=== PATIENT | male | born 1965 | race African-American/Black ===

== ENCOUNTER 2024-06-19 09:30 | Day surgery (SDC) | payer BC ==
[2024-06-17 13:59] LABS: Basophils # (auto) 0 10 ^3/uL (0-0.2); Basophils % (auto) 0.7 % (0.0-2.0); Eosinophils # (auto) 0.1 10 ^3/uL (0-0.8); Eosinophils % (auto) 2.8 % (0.0-7.0); Hematocrit 44.9 % (41.0-53.0); Hemoglobin 14.9 g/dL (13.5-17.5); Lymphocytes % (auto) 40.1 % (10.0-50.0); Mean Corpuscular Hemoglobin 26.6 pg (28.0-32.0); Mean Corpuscular Hgb Conc. 33.3 g/dL (32.0-36.0); Mean Corpuscular Volume 79.8 fL (80.0-100.0); Monocytes # (auto) 0.5 10 ^3/uL (0-1.3); Monocytes % (auto) 10.8 % (0.0-12.0); Neutrophils # (auto) 2.3 10 ^3/uL (1.6-8.6); Neutrophils % (auto) 45.6 % (37.0-80.0); Nucleated Red Blood Cells % 0.1 %; Platelet Count (auto) 185 10^3/uL (140-450); Red Blood Cells 5.63 10^6/uL (4.5-5.90); Red Cell Distribution Width 14.6 % (11.8-14.3)
[2024-06-17 14:15] LABS: INR 1.03 (0.9-1.15); Partial Thromboplastin Time 28.2 SEC (24.5-34.5); Prothrombin Time 10.9 sec (9.3-11.8)
[2024-06-17 14:23] LABS: Alanine Aminotransferase 17 U/L (7-40); Alkaline Phosphatase 82 U/L (46-116); Anion Gap 4 (5-15); Aspartate Aminotransferase 12 U/L (13-40); BUN/Creatinine Ratio 13.1 (10.0-20.0); Blood Urea Nitrogen 16 mg/dL (9-23); Calcium 9.8 mg/dL (8.7-10.4); Carbon Dioxide 28 mmol/L (20-31); Chloride 109 mmol/L (98-107); Glucose 95 mg/dL (74-106); Potassium 4.5 mmol/L (3.5-5.1); Sodium 141 mmol/L (136-145)
[2024-06-17 14:24] LABS: Albumin 4.5 g/dL (3.2-4.8); Bilirubin, Total 0.4 mg/dL (0.2-1.0); Total Protein 7.3 g/dL (5.7-8.2)
[~2024-06-19] VITALS: Ht 180.3 cm; Wt 90.7 kg
[~2024-06-19 09:30] MED LIST: AMLO1TAB22 PO
[2024-06-19] MEDS ORDERED: SODIUM CHLORIDE LOCK 10 ML ONE (10:00)
[2024-06-19 11:15] VITALS: PULSE 43; RESP 11; O2SAT 100
[2024-06-19] MEDS: diphenhdrAMINE HCL 50 MG/1 ML VL ONE (11:30)
[2024-06-19] MEDS: MIDAZOLAM HCL 5 MG/ML-1ML VIAL ONE (11:30)
[2024-06-19] MEDS: fentaNYL CITRATE 100 MCG/2 ML VL ONE (11:30)
[2024-06-19 12:00] VITALS: TEMP 97.6
--- NOTE | 2024-06-19 12:03 | DVHOP2 ---
Operative Report DATE OF OPERATION: 06/19/24 PROCEDURE: Colonoscopy with hot snare polypectomy. PREOPERATIVE INDICATION: The patient is a 58 -year-old male undergoing colonoscopy for surveillance with personal history of colon polyps POSTOPERATIVE DIAGNOSES: 1. There was a 1 cm benign-appearing ascending colon polyp that was seen and removed by snare polypectomy and the specimens were retrieved 2. There was a to 3 mm benign-appearing sigmoid polyp that was seen and removed by snare polypectomy and the specimen was retrieved with a cold biopsy forceps 3. Rarwdert-es-eohloi scattered diverticular disease 4. Patient had one to 2+ internal hemorrhoids with grade 1 prolapse of the hemorrhoids and there was a slightly prominent inflamed fold from which biopsies were obtained PROCEDURE PERFORMED BY: Lex Landrum M.D. SCOPE: Olympus videocolonoscope. ASA CLASS: PREOPERATIVE MEDICATIONS: Versed 3 mg, Fentanyl 100 mcg, Benadryl 50 mg PROCEDURE IN DETAIL: After obtaining an informed consent, the patient was placed on left lateral decubitus position. He was then sedated with the above medications. A rectal examination was performed that was normal. The colonoscope was then passed through the anus into the rectosigmoid and through the descending, transverse, and ascending colon up to the cecum with visualization of the appendiceal orifice, base of the cecum and the ileocecal valve. The colonoscope was then withdrawn. In the ascending colon there was a 1-1.5 cm benign-appearing polyp. This was removed by snare polypectomy and the specimens were retrieved. There was a 3 mm benign-appearing sigmoid polyp that was seen and removed by snare polypectomy and the specimen was cauterized and removed by cold biopsy forceps Patient had npejxnwy-er-ufckjo scattered diverticular disease most prominent in the sigmoid. On retroflexion and straight on view the patient had one to 2+ internal hemorrhoids with grade 1 prolapse of the hemorrhoids which was reducible. On retroflexion there was a prominent anorectal fold involving the hemorrhoid complex and biopsies were obtained The patient tolerated the procedure well without difficulty. WITHDRAWAL TIME: 12 minutes QUALITY OF THE PREP: [place] Bowel Prep score: 9. COMPLICATIONS : None SPECIMENS: Ascending colon polyp Sigmoid polyp Anorectal biopsies DISPOSITION: Stable D/C to home PLAN: 1. Repeat colonoscopy base on biopsy result likely in 3-5 years 2. Resume GI soft diet advance as tolerated 3. Increase fluid and fiber intake 4. Local anorectal hemorrhoidal care and consider hemorrhoidectomy 5. Outpatient follow up with me in 4-6 weeks to review results and discuss further management LEX LANDRUM MD Jun 19, 2024 12:03
[2024-06-19 12:42] VITALS: BP 124/85; PULSE 47; RESP 12; O2SAT 97
== END 2024-06-19 13:00 | disposition home or self-care (01) ==
LOC: GI 09:30
PROVIDERS: ATTEND Internal Medicine Gastroenterology
DX: Z12.11 Encounter for screening for malignant neoplasm of colon (principal); K57.30 Diverticulosis of large intestine without perforation or abscess without bleeding; K64.1 Second degree hemorrhoids; D12.2 Benign neoplasm of ascending colon; K62.89 Other specified diseases of anus and rectum; I10 Essential (primary) hypertension; Z79.899 Other long term (current) drug therapy; Z98.890 Other specified postprocedural states; Z86.0100 Personal history of colon polyps, unspecified
CPT/HCPCS: 36415; 45380; 45385; 80053; 85025; 85610; 85730; 88305; 88342; J1200; J2250; J3010; J7030; 99152; 99153

== ENCOUNTER → 2025-03-08 | Day surgery (SDC) | payer BC ==
[2025-03-04 10:14] LABS: Hematocrit 47.0 % (41.0-53.0); Hemoglobin 15.8 g/dL (13.5-17.5); Mean Corpuscular Hemoglobin 26.9 pg (28.0-32.0); Mean Corpuscular Volume 79.6 fL (80.0-100.0); Nucleated Red Blood Cells % 0.3 %
[2025-03-04 10:29] LABS: INR 1.01 (0.9-1.15); Partial Thromboplastin Time 28.8 SEC (24.5-34.5); Prothrombin Time 10.7 sec (9.3-11.8)
[2025-03-04 10:39] LABS: Urine Protein, UAD Negative (Negative)
[2025-03-04 10:45] LABS: Alanine Aminotransferase 21 U/L (7-40); Alkaline Phosphatase 67 U/L (46-116); Anion Gap 8 (5-15); BUN/Creatinine Ratio 15.4 (10.0-20.0); Bilirubin, Total 0.5 mg/dL (0.2-1.0); Blood Urea Nitrogen 18 mg/dL (9-23); Calcium 10.1 mg/dL (8.7-10.4); Carbon Dioxide 27 mmol/L (20-31); Chloride 106 mmol/L (98-107); Glucose 95 mg/dL (74-106); Potassium 4.5 mmol/L (3.5-5.1); Sodium 141 mmol/L (136-145); Total Protein 7.4 g/dL (5.7-8.2)
[2025-03-04 10:52] LABS: Albumin 4.8 g/dL (3.2-4.8)
[~2025-03-08] VITALS: Ht 180.3 cm; Wt 94.8 kg
[~2025-03-08] MED LIST changes: +ACE3T PO; +BUPIVACAINE 0.5% MPF INJ 30ML SDV IJ ONE; +GELATIN 1 SPONGE SIZE 100 TOP ONE; +GLYCOPYRROLATE 0.2 MG/ML 1ML VIAL ONE; +HYDROmorphone HCL 2 MG/ML VL/or syr IV PRN; +HYDROmorphone HCL 2 MG/ML VL/or syr ONE; +KETAMINE 50mg/ML 1ml syringe ONE; +KETOROLAC TROMETH 30 MG/ML 1ML VIAL ONE; +LIDOCAINE 1% HCL (LOCAL ANESTH.) INJ 20ML MDV ONE; +LIDOCAINE 2% (LOCAL ANESTH.) PF 5ml SDV ONE; +LIDOCAINE 2% JELLY 11ml (GLYDO) ONE; +MIDAZOLAM HCL 2MG/2ML 2ml VIAL (1mg/ml) ONE; +ONDANSETRON HCL 4 MG/2 ML VIAL IV ONE; +ONDANSETRON HCL 4 MG/2 ML VIAL ONE; +PHENYLEPHRINE HCL 10 MG/ML VL ONE; +PROPOFOL 10 MG/ML 20 ML IV ONE; +SUGAMMADEX 200mg/2ml Vial (100MG/ML) IV ONE; +ceFAZolin 1GM/50ML 50 ML IV ONE; +fentaNYL CITRATE 100 MCG/2 ML VL ONE
[2025-03-08] MEDS: BUPIVACAINE W/ EPINEPH 0.5% INJ 50ML MDV IJ ONE (08:02)
--- NOTE | 2025-03-08 08:38 | DVHOP ---
DATE OF SURGERY: 03/08/2025 PREOPERATIVE DIAGNOSIS: Hemorrhoids. POSTOPERATIVE DIAGNOSIS: Hemorrhoids. SURGEON: Rah Singleton MD ASBESTOS MICROSCOPIST: Angelito Alcantar NP ANESTHESIA: General endotracheal. ANESTHESIOLOGIST: Dr. Salazar. DESCRIPTION OF PROCEDURE: Under general endotracheal anesthesia with the patient in kath knife position prone on the operating room table, the patient's body padded and secured and carefully protected. The patient's buttocks by tape. The perianal area was prepped and draped and infiltrated with 0.25% Marcaine with epinephrine. Subsequently, the anus was dilated to 3 fingerbreadths and the hemorrhoids were exposed. Individual groups of hemorrhoids that were partially external were grasped with a Ramirez and a Bovie clamp was applied to the base. The hemorrhoid was amputated. The remaining mucosa was sutured with 2-0 chromic sutures. Several internal hemorrhoids were controlled by means of application of rubber bands. The patient's anus was then packed with Gelfoam pad saturated with 2% Xylocaine gel. The patient remained stable throughout the procedure and left the operating room following an accurate needle and sponge count. His customer contact representative was thoroughly informed at [phone]. MD NATHEN Mccloud/AUREA TID: [id number] RECEIPT: [id number]
[2025-03-08 08:45] VITALS: PULSE 71; RESP 14; TEMP 97; O2SAT 98
[2025-03-08 09:00] VITALS: PULSE 82; RESP 12; O2SAT 100
[2025-03-08 09:15] VITALS: PULSE 58; RESP 12; O2SAT 95
[2025-03-08 09:45] VITALS: BP 149/83; PULSE 65; RESP 12; O2SAT 98
== END | disposition home or self-care (01) ==
LOC: SUR 06:06
PROVIDERS: ATTEND Surgery
DX: K64.4 Residual hemorrhoidal skin tags (principal); K64.8 Other hemorrhoids; I10 Essential (primary) hypertension; Z79.899 Other long term (current) drug therapy; Z98.890 Other specified postprocedural states
CPT/HCPCS: 36415; 46250; 80053; 81001; 85025; 85610; 85730; 88305; J0690; J1100; J1171; J1885; J2003; J2250; J2371; J2405; J2704; J3010; J3490

== ENCOUNTER 2025-05-30 11:57 | Inpatient (IN) | payer BC ==
[~2025-05-30] VITALS: Ht 180.3 cm; Wt 100.0 kg
[~2025-05-30 11:57] MED LIST changes: -BUPIVACAINE 0.5% MPF INJ 30ML SDV IJ ONE; -GELATIN 1 SPONGE SIZE 100 TOP ONE; -GLYCOPYRROLATE 0.2 MG/ML 1ML VIAL ONE; -HYDROmorphone HCL 2 MG/ML VL/or syr IV PRN; -HYDROmorphone HCL 2 MG/ML VL/or syr ONE; -KETAMINE 50mg/ML 1ml syringe ONE; -KETOROLAC TROMETH 30 MG/ML 1ML VIAL ONE; -LIDOCAINE 1% HCL (LOCAL ANESTH.) INJ 20ML MDV ONE; -LIDOCAINE 2% (LOCAL ANESTH.) PF 5ml SDV ONE; -LIDOCAINE 2% JELLY 11ml (GLYDO) ONE; -MIDAZOLAM HCL 2MG/2ML 2ml VIAL (1mg/ml) ONE; -ONDANSETRON HCL 4 MG/2 ML VIAL IV ONE; -ONDANSETRON HCL 4 MG/2 ML VIAL ONE; -PHENYLEPHRINE HCL 10 MG/ML VL ONE; -PROPOFOL 10 MG/ML 20 ML IV ONE; -SUGAMMADEX 200mg/2ml Vial (100MG/ML) IV ONE; -ceFAZolin 1GM/50ML 50 ML IV ONE; -fentaNYL CITRATE 100 MCG/2 ML VL ONE
--- NOTE | 2025-05-30 12:09 | ECG ---
[facility] Test Date: 2025-05-30 Test Time: 12:02:59 Pat Name: STEPHANIE MORGAN Department: ED Room: Gender: M Layer Off: WILLIAMS : 1965 Requested By: INEZ SMITH Order Number: [id number] Reading MD: Elías Bacon Measurements Intervals [place] Rate: 48 P: -27 OR: 108 QRS: 30 QRSD: 81 T: 44 QT: 413 QTc: 369 Interpretive Statements Sinus bradycardia Short OR interval Electronically Signed On 05-30-2025 17:04:19 PDT by Elías Bacon Please click the below link to view image of tracing.
--- NOTE | 2025-05-30 12:45 | ED.PDOC ---
HPI Comments 59 y.o male with PMHx of HTN, presents to the ED for a chief complaint of substernal chest pain that started today s/p leaving the gym today. Patient reports was doing cardio on the treadmill today, went inside the steam room and when he left, felt a sharp sudden pain localized to the center of his chest. Patient states pain only presents with movement and subsides at rest. Patient mentions living a healthy life, eats well and exercises daily. He has had previous stress test and other cardiac workup done in the past. No nausea, vomiting,, SOB reported. Chief Complaint: Chest Pain Time Seen by MD: 12:08 Reviewed Notes: Nurses Notes, Medications, Allergies Allergies: Coded Allergies: NO KNOWN ALLERGIES (Unverified , 06/17/24) Home Meds Active Scripts Acetaminophen W/ Codeine (Tylenol W/Cod #3) 1 Tab Tb, 1 TAB PO Q4HP PRN for 10 Days, #50 TAB Prov:ARIE FRAIRE REDYE HAND 03/08/25 Reported Medications Amlodipine Besylate (Amlodipine Besylate) 5 Mg Tab, 10 MG PO DAILY for 30 Days, MG 06/17/24 Information Source: Patient Mode of Arrival: Ambulatory Severity: Moderate Timing: Hours Duration: Since onset Location: Substernal Radiation: No Radiation Quality: Sharp Onset: At Rest Cardiac Risk Factors: HTN PE Risk Factors: None History of: None Modifying Factors: Nothing Associated Signs and Symptoms: None Past Medical History PAST MEDICAL HISTORY: HTN Surgical History: Denies all surgeries Family History Family History: Reviewed,noncontributory to illness Social History Smoker: Non-Smoker Alcohol: Denies ETOH Use Drugs: Denies Drug Use Lives In: Home Constitutional: denies: chills, diaphoresis, fatigue, fever, malaise, sweats, weakness, others EENTM: denies: blurred vision, double vision, ear bleeding, ear discharge, ear drainage, ear pain, ear ringing, eye pain, eye redness, hearing loss, mouth pain, mouth swelling, nasal discharge, nose bleeding, nose congestion, nose pain, photophobia, tearing, throat pain, throat swelling, voice changes, others Respiratory: denies: cough, hemoptysis, orthopnea, SOB at rest, shortness of breath, SOB with excertion, stridor, wheezing, others Cardiovascular: reports: chest pain; denies: dizzy spells, diaphoresis, Dyspnea on exertion, edema, irregular heart beat, left arm pain, lightheadedness, palpitations, PND, syncope, others Gastrointestinal: denies: abdomen distended, abdominal pain, blood streaked bowels, constipated, diarrhea, dysphagia, difficulty swallowing, hematemesis, melena, nausea, poor appetite, poor fluid intake, rectal bleeding, rectal pain, vomiting, others Genitourinary: denies: burning, dysuria, flank pain, frequency, hematuria, incontinence, penile discharge, penile sore, pain, testicle pain, testicle swelling, urgency, others Neurological: denies: dizziness, fainting, headache, left sided numbness, left sided weakness, numbness, paresthesia, pre-existing deficit, right sided numbness, right sided weakness, seizure, speech problems, tingling, tremors, weakness, others Musculoskeletal: denies: back pain, gout, joint pain, joint swelling, muscle pain, muscle stiffness, neck pain, others Integumetry: denies: bruises, change in color, change in hair/nails, dryness, laceration, lesions, lumps, rash, wounds, others Allergic/Immunocompromised: denies: Difficulty Healing, Frequent Infections, Hives, Itching, others Hematologic/Lymphatic: denies: anemia, blood clots, easy bleeding, easy bruising, swollen glands, others Endocrine: denies: excessive hunger, excessive sweating, excessive thirst, excessive urination, flushing, intolerance to cold, intolerance to heat, unexplained weight gain, unexplained weight loss, others Psychiatric: denies: anxiety, bipolar disorder, depression, hopeless, panic disorder, schizophrenia, sleepless, suicidal, others All Other Systems: Reviewed and Negative Physical Exam General Appearance: Moderate Distress HEENT: Normal ENT Inspection, Pharynx Normal, TMs Normal Neck: Full Range of Motion, Non-Tender, Normal, Normal Inspection Respiratory: Chest Non-Tender, Lungs Clear, No Accessory Muscle Use, No Respira tory Distress, Normal Breath Sounds Cardiovascular: Bradycardia Breast Exam: Deferred Gastrointestinal: No Organomegaly, Non Tender, No Pulsatile Mass, Normal Bowel Sounds, Soft Genitalia: Deferred Pelvic: Deferred Rectal: Deferred Extremities: No calf tenderness, Normal capillary refill, Normal inspection, Normal range of motion, Non-tender, No pedal edema Musculoskeletal : Apperance: Normal Neurologic: Alert, 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 Was a procedure done?: No CP Differential Dx Differential Diagnosis: A-fib, A-Flutter, Angina, Anxiety / Panic Attack, Atrial Dysrhythmia, Electrolyte Disorder, N/A Differential Diagnosis: Angina, Chest Wall Pain, Cholelithiasis, Costochondritis, Pericarditis X-Ray, Labs, Meds, VS Vital Signs Date Time Temp Pulse Resp B/P (MAP) Pulse Ox O2 Delivery O2 Flow Rate FiO2 05/30/25 15:00 52 05/30/25 14:08 59 05/30/25 14:08 59 18 136/81 (99) 98 05/30/25 13:05 53 05/30/25 12:45 48 05/30/25 12:02 98.0 53 18 157/95 97 98.0 05/30/25 12:02 48 Lab Test 05/30/25 13:30 05/30/25 12:35 Range/Units Troponin I High Sensitivity 111 *H 107 *H </=54 ng/L White Blood Count 4.3 L 4.4-10.8 10^3/uL Red Blood Count 5.38 4.5-5.90 10^6/uL Hemoglobin 14.2 13.5-17.5 g/dL Hematocrit 42.5 41.0-53.0 % Mean Corpuscular Volume 78.9 L 80.0-100.0 fL Mean Corpuscular Hemoglobin 26.5 L 28.0-32.0 pg Mean Corpuscular Hemoglobin Concent 33.5 32.0-36.0 g/dL Red Cell Distribution Width 14.2 11.8-14.3 % Platelet Count 167 140-450 10^3/uL Mean Platelet Volume 9.3 6.9-10.8 fL Neutrophils (%) (Auto) 49.1 37.0-80.0 % Lymphocytes (%) (Auto) 37.9 10.0-50.0 % Monocytes (%) (Auto) 9.9 0.0-12.0 % Eosinophils (%) (Auto) 2.5 0.0-7.0 % Basophils (%) (Auto) 0.6 0.0-2.0 % Neutrophils # (Auto) 2.1 1.6-8.6 10 ^3/uL Lymphocytes # (Auto) 1.6 0.4-5.4 10 ^3/uL Monocytes # (Auto) 0.4 0-1.3 10 ^3/uL Eosinophils # (Auto) 0.1 0-0.8 10 ^3/uL Basophils # (Auto) 0 0-0.2 10 ^3/uL Nucleated Red Blood Cells 0.2 % Sodium Level 141 136-145 mmol/L Potassium Level 4.6 3.5-5.1 mmol/L Chloride Level 107 98-107 mmol/L Carbon Dioxide Level 28 20-31 mmol/L Anion Gap 6 5-15 Blood Urea Nitrogen 14 9-23 mg/dL Creatinine 1.19 0.700-1.30 mg/dL Glomerular Filtration Rate Calc 70 >90 mL/min BUN/Creatinine Ratio 11.8 10.0-20.0 Serum Glucose 90 74-106 mg/dL Calcium Level 9.0 8.7-10.4 mg/dL Patient alert. Complaining of chest pain. EKG does show bradycardia. Vitals stable. Answering questions. Cardiac marker elevated. Was given Lovenox. Explained to the patient he has risk factors for coronary artery disease pain Continue monitoring. Time of 1ST Reevaluation: 12:41 Reevaluation 1ST: Unchanged Patient Education/Counseling: Diagnosis, Treatment, Prognosis Family Education/Counseling: No Family Present SEPSIS Sepsis Screen Date sepsis recognized/suspect: May 30, 2025 Time Sepsis recognized/suspect: 120 Recent Procedure: No On Antibiotic Therapy: No Respiratory Rate >20: No Heart Rate >90: No Temp<36 C (96.8 F) or >38.3 C: No SBP <90 or MAP <65 mmHG: No New Acute Mental Status Change: No Is the patient on CPAP, BIPAP,: No Physician Orders Troponin-I Hs (05/30/25 15:08) Electrocardigram (05/30/25 13:08) Electrocardigram (05/30/25 15:08) Chest Portable (05/30/25 12:21) Vital Signs Date Time Temp Pulse Resp B/P (MAP) Pulse Ox O2 Delivery O2 Flow Rate FiO2 05/30/25 15:00 52 05/30/25 14:08 59 05/30/25 14:08 59 18 136/81 (99) 98 05/30/25 13:05 53 05/30/25 12:45 48 05/30/25 12:02 98.0 53 18 157/95 97 98.0 05/30/25 12:02 48 Laboratory Tests Test 05/30/25 12:35 White Blood Count 4.3 10^3/uL (4.4-10.8) L Departure 1 Departure Time of Disposition: 15:34 Impression: Primary Impression: Demand ischemia Additional Impressions: HTN (hypertension) Qualified Codes: I10 - Essential (primary) hypertension Bradycardia Disposition: ADMITTED INPATIENT Admit to: Med Surg Condition: Guarded Critical Care Note Critical Care Time?: Yes (55 min-critical care time only) Stability Stability form required: No Heart Score Heart Score: Heart Score Response (Comments) Value History Slightly Suspicious 0 EKG Normal 0 Age 45-64 1 Risk Factors 1 or 2 risk factors 1 Troponin >3 x's Normal limit 2 Total 4 I personally scribed for INEZ SMITH MD ([email or web address]) on 05/30/25 at 12:45. Electronically submitted by Valentina Rose ([facility]). INEZ SMITH MD May 30, 2025 12:45
[2025-05-30 12:46] LABS: Hemoglobin 14.2 g/dL (13.5-17.5)
[2025-05-30 12:48] LABS: Hematocrit 42.5 % (41.0-53.0); Mean Corpuscular Hemoglobin 26.5 pg (28.0-32.0); Mean Corpuscular Volume 78.9 fL (80.0-100.0); Nucleated Red Blood Cells % 0.2 %
[2025-05-30 12:56] LABS: Potassium 4.6 mmol/L (3.5-5.1); Sodium 141 mmol/L (136-145)
[2025-05-30 12:57] LABS: Anion Gap 6 (5-15); Calcium 9.0 mg/dL (8.7-10.4); Carbon Dioxide 28 mmol/L (20-31); Chloride 107 mmol/L (98-107)
[2025-05-30 13:02] LABS: BUN/Creatinine Ratio 11.8 (10.0-20.0); Blood Urea Nitrogen 14 mg/dL (9-23); Glucose 90 mg/dL (74-106)
--- NOTE | 2025-05-30 13:07 | DVH ---
XY CHEST PORTABLE, HISTORY: sob COMPARISON: XY CHEST TWO VIEWS ROUTINE on DOS: 03/04/25 XY CHEST TWO VIEWS ROUTINE on DOS: 03/04/25 TECHNICAL DATA: 1 view of the chest was obtained. FINDINGS: Lines and tubes: None Cardiomediastinal silhouette: normal Pulmonary vasculature: normal Lung expansion: normal Lung airspace: normal Lung interstitium: normal Pleura: normal Pneumothorax: no Bones: Unremarkable Other: no IMPRESSION: No acute intrathoracic abnormality.
--- NOTE | 2025-05-30 16:26 | ECG ---
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
[2025-05-30 16:51] VITALS: PULSE 57; RESP 20; O2SAT 97
[2025-05-30] MEDS ORDERED: MORPHINE SULFATE INJ 2 MG/ml SYRG IV PRN (19:30)
[2025-05-30] MEDS ORDERED: ONDANSETRON HCL 4 MG/2 ML VIAL IV PRN (19:30)
[2025-05-30] MEDS ORDERED: NITROGLYCERIN 0.4 MG SL TAB SL PRN (19:30)
[2025-05-30] MEDS ORDERED: TEMAZEPAM 15 MG CAP PO PRN (19:30)
[2025-05-30] MEDS: ATORVASTATIN 20 MG TAB PO SCH (22:53)
--- NOTE | 2025-05-30 22:58 | DVHHP2 ---
History of Present Illness Reason for Visit: Chest pain History of Present Illness 59-year-old male presents for evaluation of chest pain. Patient endorses a five day history of substernal chest tightness with mild shortness for breath. He states today the symptoms became worse while he was at the gym. No nausea or vomiting. No other acute complaints reported. Past Medical History Hypertension Past Surgical History Denies Family History Noncontributory Smoke: No ALCOHOL: none Drugs: None Lives: with Family Review of Systems Review of Systems Review of systems are currently negative otherwise addressed in HPI. Allergies: Coded Allergies: NO KNOWN ALLERGIES (Unverified , 06/17/24) Medications Current Medications Medications Dose Ordered Sig/Benito Route Start Time Stop Time Status Last Admin Dose Admin Atorvastatin Calcium 10 mg HS PO 05/30/25 22:00 05/30/25 22:53 10 MG Aspirin 81 mg DAILY PO 05/31/25 10:00 Amlodipine Besylate 10 mg DAILY PO 05/31/25 10:00 Temazepam 15 mg QHSP PRN PO 05/30/25 19:30 Ondansetron HCl 4 mg Q4HP PRN IV 05/30/25 19:30 Acetaminophen 650 mg Q6HP PRN PO 05/30/25 19:30 Nitroglycerin 0.4 mg Q5MINP PRN SL 05/30/25 19:30 Morphine Sulfate 2 mg Q30M PRN IV 05/30/25 19:30 Exam Vital Signs Vital Signs Date Time Temp Pulse Resp B/P (MAP) Pulse Ox O2 Delivery O2 Flow Rate FiO2 05/30/25 19:29 98.3 57 20 148/89 (108) 98 98.3 05/30/25 16:51 Room Air* 0 21 Exam Gen: 59-year-old male in mild distress. Skin: Warm, dry, normal color and texture, no rash. HEENT: Normocephalic atraumatic, mucous membranes moist and pink. Neck: Cervical and supraclavicular nodes normal without enlargement, trachea is midline, thyroid gland is normal without masses. Pulmonary: Clear to auscultation and percussion bilaterally. Cardiac: Regular rate and rhythm. No murmur Abdomen: Soft, nontender, nondistended, bowel sounds present all 4 quadrants, no guarding, no rigidity, no organomegaly. Extremities: No cyanosis, clubbing, no edema Neuro: Cranial nerves II through XII grossly intact, normal affect and speech, no focal motor deficits. Labs/Xrays ORDERING PHYSICIAN: INEZ SMITH MD PROCEDURE(s): CXRP - CHEST PORTABLE REASON: sob ORDER NUMBER(s): [id number], ACCESSION NUMBER(s): [id number] XY CHEST PORTABLE, HISTORY: sob COMPARISON: XY CHEST TWO VIEWS ROUTINE on DOS: 03/04/25 XY CHEST TWO VIEWS ROUTINE on DOS: 03/04/25 TECHNICAL DATA: 1 view of the chest was obtained. FINDINGS: Lines and tubes: None Cardiomediastinal silhouette: normal Pulmonary vasculature: normal Lung expansion: normal Lung airspace: normal Lung interstitium: normal Pleura: normal Pneumothorax: no Bones: Unremarkable Other: no IMPRESSION: No acute intrathoracic abnormality. ATED BY: UMANG VICK MD DICTATED DATE/TIME: 05/30/25 1305 SIGNED BY: UMANG VICK MD SIGNED DATE/TIME: 05/30/25 1305 CC: Labs Test 05/30/25 15:42 05/30/25 12:35 Range/Units Troponin I High Sensitivity 126 *H </=54 ng/L White Blood Count 4.3 L 4.4-10.8 10^3/uL Red Blood Count 5.38 4.5-5.90 10^6/uL Hemoglobin 14.2 13.5-17.5 g/dL Hematocrit 42.5 41.0-53.0 % Mean Corpuscular Volume 78.9 L 80.0-100.0 fL Mean Corpuscular Hemoglobin 26.5 L 28.0-32.0 pg Mean Corpuscular Hemoglobin Concent 33.5 32.0-36.0 g/dL Red Cell Distribution Width 14.2 11.8-14.3 % Platelet Count 167 140-450 10^3/uL Mean Platelet Volume 9.3 6.9-10.8 fL Neutrophils (%) (Auto) 49.1 37.0-80.0 % Lymphocytes (%) (Auto) 37.9 10.0-50.0 % Monocytes (%) (Auto) 9.9 0.0-12.0 % Eosinophils (%) (Auto) 2.5 0.0-7.0 % Basophils (%) (Auto) 0.6 0.0-2.0 % Neutrophils # (Auto) 2.1 1.6-8.6 10 ^3/uL Lymphocytes # (Auto) 1.6 0.4-5.4 10 ^3/uL Monocytes # (Auto) 0.4 0-1.3 10 ^3/uL Eosinophils # (Auto) 0.1 0-0.8 10 ^3/uL Basophils # (Auto) 0 0-0.2 10 ^3/uL Nucleated Red Blood Cells 0.2 % Sodium Level 141 136-145 mmol/L Potassium Level 4.6 3.5-5.1 mmol/L Chloride Level 107 98-107 mmol/L Carbon Dioxide Level 28 20-31 mmol/L Anion Gap 6 5-15 Blood Urea Nitrogen 14 9-23 mg/dL Creatinine 1.19 0.700-1.30 mg/dL Glomerular Filtration Rate Calc 70 >90 mL/min BUN/Creatinine Ratio 11.8 10.0-20.0 Serum Glucose 90 74-106 mg/dL Calcium Level 9.0 8.7-10.4 mg/dL B-Type Natriuretic Peptide 18.03 0-100 pg/mL SEPSIS Sepsis Screen Date sepsis recognized/suspect: May 30, 2025 Time Sepsis recognized/suspect: 1640 Recent Procedure: No On Antibiotic Therapy: No Respiratory Rate >20: No Heart Rate >90: No Temp<36 C (96.8 F) or >38.3 C: No SBP <90 or MAP <65 mmHG: No New Acute Mental Status Change: No Is the patient on CPAP, BIPAP,: No Physician Orders * Cardiology Consult (05/30/25 19:24) Basic Metabolic Panel (05/31/25 04:00) Atorvastatin (Lipitor) (05/30/25 22:00) Aspirin Tablet (05/31/25 10:00) Amlodipine Tablet (Norvasc Tablet) (05/31/25 10:00) Admit (05/30/25 19:24) Temazepam (Restoril) (05/30/25 19:30) Ondansetron Hcl (Zofran) (05/30/25 19:30) Cardiac Diet-2gna,Lofat,Lochol (05/31/25 Breakfast) Echo 2d Mode Cardiac Dop (05/30/25 19:24) Condition: Fair (05/30/25 19:24) Acetaminophen Tablet (Tylenol Tablet) (05/30/25 19:30) Bedrest With Bathroom Privileg (05/30/25:24) Nitroglycerin Sublingual (Ntrostat Subli (05/30/25 19:30) Morphine Sulfate Injection (05/30/25 19:30) Stat Ekg For Chest Pain (05/30/25:) Notify Md Of Changes From Base (05/30/25:24) Parts Expediter For 24 Hours (05/30/25:24) Emergency Dysrhythmia Protocol (05/30/25:) Rhythm Strips Once Every Shift (05/30/25:) Oxygen By Nasal Cannula (05/30/25) Thyroid Stimulating Hormone (05/30/25 22:55) Lipid Panel (05/30/25 22:55) Vital Signs Date Time Temp Pulse Resp B/P (MAP) Pulse Ox O2 Delivery O2 Flow Rate FiO2 05/30/25 19:29 98.3 57 20 148/89 (108) 98 98.3 05/30/25 18:57 98.3 57 20 148/89 (108) 98 98.3 05/30/25 16:51 57 20 97 Room Air* 0 21 05/30/25 16:51 98.2 67 20 142/79 (100) 97 98.2 05/30/25 16:41 98.2 57 20 142/79 (100) 96 98.2 05/30/25 15:00 52 Laboratory Tests Test 05/30/25 12:35 White Blood Count 4.3 10^3/uL (4.4-10.8) L Medications Medications Dose Ordered Sig/Benito Route Start Time Stop Time Status Last Admin Dose Admin Atorvastatin Calcium 10 mg HS PO 05/30/25 22:00 05/30/25 22:53 10 MG Assessment/Plan Assessment/Plan Assessment Chest pain rule out ACS Elevated troponin Hypertension Plan Admit the patient to telemetry to the hospitalist ACS protocol Resume home medications Continue treatment per orders. Plan discussed with: Patient My Orders Orders - TALA JACKMAN Procedure Category Date Status Time * Cardiology Consult CONS 05/30/25 Transmitted 19:24 Basic Metabolic Panel LAB 05/31/25 Verified 04:00 Atorvastatin (Lipitor) PHA 05/30/25 In Process 22:00 Aspirin Tablet PHA 05/31/25 In Process 10:00 Amlodipine Tablet PHA 05/31/25 In Process (Norvasc Tablet) 10:00 Admit ADMIT 05/30/25 Transmitted 19:24 Temazepam (Restoril) PHA 05/30/25 In Process 19:30 Ondansetron Hcl PHA 05/30/25 In Process (Zofran) 19:30 Cardiac DIET 05/31/25 Transmitted Diet-2gna,Lofat,Lochol Breakfast Echo 2d Mode Cardiac US 05/30/25 Logged DOP 19:24 Condition: Fair RAMONA 05/30/25 In Process 19:24 Acetaminophen Tablet PHA 05/30/25 In Process (Tylenol Tablet) 19:30 Bedrest With Bathroom RAMONA 05/30/25 In Process Privileg 19:24 Nitroglycerin PHA 05/30/25 In Process Sublingual (Ntrostat 19:30 Morphine Sulfate PHA 05/30/25 In Process Injection 19:30 Stat Ekg For Chest RAMONA 05/30/25 In Process Pain 19:24 Notify Md Of Changes RAMONA 05/30/25 In Process From Base 19:24 Parts Expediter For RAMONA 05/30/25 In Process 24 Hours 19:24 Emergency Dysrhythmia [facility] 05/30/25 In Process Protocol 19:24 Rhythm Strips Once [facility] 05/30/25 In Process Every Shift 19:24 Oxygen By Nasal RT 05/30/25 Transmitted Cannula 19:24 Thyroid Stimulating LAB 05/30/25 Verified Hormone 22:55 Lipid Panel LAB 05/30/25 Verified 22:55 Date of Service: May 30, 2025 Billing Provider: TALA JACKMAN Common Visit Codes: [id number] INP/OBS CARE (HIGH) TALA JACKMAN May 30, 2025 22:58
[2025-05-30 23:18] LABS: Cholesterol 201 mg/dL (< 200); HDL Cholesterol 29 mg/dL (40-59); Triglycerides 508 mg/dL (< 150)
[2025-05-31] VITALS (9 sets, daily range): BP systolic 105–160; BP diastolic 79–90; PULSE 43–56; RESP 10–18; TEMP 97.5–98.2; O2SAT 95–100
[2025-05-31 05:54] LABS: Chloride 106 mmol/L (98-107); Potassium 4.3 mmol/L (3.5-5.1); Sodium 141 mmol/L (136-145)
[2025-05-31 05:56] LABS: Anion Gap 8 (5-15); Calcium 9.0 mg/dL (8.7-10.4); Carbon Dioxide 27 mmol/L (20-31)
[2025-05-31 06:01] LABS: BUN/Creatinine Ratio 15.3 (10.0-20.0); Blood Urea Nitrogen 19 mg/dL (9-23)
[2025-05-31 06:02] LABS: Glucose 132 mg/dL (74-106)
[2025-05-31 10:18] LABS: Cannabinoid Screen, Urine Pos (NEGATIVE)
[2025-05-31 10:25] LABS: Amphetamine Screen, Urine Neg (NEGATIVE); Barbiturate Scree,Urine Neg (NEGATIVE); Benzodiazephine Screen, Urine Neg (NEGATIVE); Cocaine Screen, Urine Neg (NEGATIVE); Opiate Scree,Urine Neg (NEGATIVE); Phencyclidine Screen, Urine Neg (NEGATIVE)
--- NOTE | 2025-05-31 11:45 | DVHCONRES ---
Date Seen: May 31, 2025 Resident Creating Document: GRIS SY RESIDENT Referring Physician GASPER KAUFMAN History of Present Illness 59-year-old male presented to the ER with a chief complaint of chest pain for the past couple of days. Patient reports midsternal chest pain, tightness in nature, nonradiating, constant, 8/10 in intensity, exacerbates with exertion, but unrelated to food. 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 Has been having this pain during cardiac workout in gym. He thinks the the pain is because of the massage chair. Denies shortness of breaths, palpitations, nausea, diaphoresis, any abdominal or urinary symptoms at this time. He does have history of dyslipidemia but stopped taking medications. Past medical history: Dyslipidemia Home medication: Denies Social history: Denies smoking/drinking/drug use Family history: Mother and father in 60s due to stroke and PR. brother had PR at the age of 55 Patient seen and examined in ER Holding. He reports feeling fine, patient seen ambulating without chest pain. EKG shows sinus rhythm, troponins slightly up trending. Family History: FH: cardiovascular disease Allergies: Coded Allergies: NO KNOWN ALLERGIES (Unverified , 06/17/24) Home Meds Active Scripts Acetaminophen W/ Codeine (Tylenol W/Cod #3) 1 Tab Tb, 1 TAB PO Q4HP PRN for 10 Days, #50 TAB Prov:ARIE FRAIRE COMMUNITY EDUCATION SPECIALIST 03/08/25 Reported Medications Amlodipine Besylate (Amlodipine Besylate) 5 Mg Tab, 10 MG PO DAILY for 30 Days, MG 06/17/24 Current Medications Current Medications Medications (Trade) Dose Ordered Sig/Benito Route PRN Reason Start Time Stop Time Status Last Admin Atorvastatin Calcium (Lipitor) 10 mg HS PO 05/30/25 22:00 05/31/25 09:05 DC 05/30/25 22:53 Aspirin 81 mg DAILY PO 05/31/25 10:05/31/25 08:27 Amlodipine Besylate (Norvasc Tablet) 10 mg DAILY PO 05/31/25 10:00 05/31/25 08:28 Temazepam (Restoril) 15 mg QHSP PRN PO FOR INSOMNIA 05/30/25 19:30 Ondansetron HCl (Zofran) 4 mg Q4HP PRN IV NAUSEA / VOMITING 05/30/25 19:30 Acetaminophen (Tylenol Tablet) 650 mg Q6HP PRN PO PAIN SCALE 1-3 OR TEMP>100.4 05/30/25 19:30 Nitroglycerin (Ntrostat Sublingual) 0.4 mg Q5MINP PRN SL FOR CHEST PAIN 05/30/25 19:30 Morphine Sulfate 2 mg Q30M PRN IV FOR CHEST PAIN 05/30/25 19:30 Atorvastatin Calcium (Lipitor) 40 mg HS PO 05/31/25 22:00 Review of Systems Eyes: No Pain, No Vision change, No Conjunctivae inflammation, No Eyelid i nflammation, No Other, No Redness ENT: No Ear pain, No Ear discharge, No Nose pain, No Nose discharge, No Nose congestion, No Mouth pain, No Mouth swelling, No Throat pain, No Throat swelling, No Other Cardiovascular: Reports Chest Pain, No Palpitations, No Orthopnea, No PND, No Edema, No Lt Headedness, No Other Respiratory: No Cough, No Dry, No Shortness of breath, No SOB with exertion, No Wheezing, No Hemoptysis, No Pleuritic Pain, No Sputum, No Other Gastrointestinal: No Nausea, No Vomiting, No Abdominal Pain, No Diarrhea, No Constipation, No Melena, No Hematochezia, No Other Genitourinary: No Dysuria, No Frequency, No Incontinence, No Hematuria, No Retention, No Other Musculoskeletal: No other, No neck pain, No shoulder pain, No arm pain, No back pain, No hand pain, No leg pain, No foot pain Skin: No Rash, No Lesions, No Jaundice, No Bruising, No Other Vital Signs Vital Signs Date Time Temp Pulse Resp B/P (MAP) Pulse Ox O2 Delivery O2 Flow Rate FiO2 05/31/25 09:03 97.9 46 12 155/90 (111) 100 97.9 05/31/25 05:50 Room Air* 0 21 Physical Exam Patient sitting in a recliner, no acute distress General: Obese, afebrile, palor, mucosae are moist Cardiovascular: Regular S1 and S2. No murmurs, gallops or rubs. No JVD elevation. No pedal edema Respiratory: Normal B/L air entry on room air. Clear lung sounds on auscultation Abdomen: Soft, nontender, nondistended, normoactive bowel sounds, no rebound tenderness, no organomegaly, no masses Genitourinary: Deferred MSK/skin: Mobilizes 4 limbs. Skin is dry and warm Neurological: No motor, no sensitive deficits, normal speech. Pupils are isocoric and reactive. Psych/Mental Status: A/Ox3 Labs/Diagnostic Data Labs Test 05/31/25 09:33 05/31/25 05:22 05/30/25 15:42 05/30/25 13:30 Range/Units Urine Opiates Screen Neg NEGATIVE Urine Fentanyl Screen Neg NEGATIVE Urine Barbiturates Screen Neg NEGATIVE Urine Phencyclidine Screen Neg NEGATIVE Urine Amphetamines Screen Neg NEGATIVE Urine Benzodiazepines Screen Neg NEGATIVE Urine Cocaine Screen Neg NEGATIVE Urine Cannabinoids Screen Pos NEGATIVE Sodium Level 141 136-145 mmol/L Potassium Level 4.3 3.5-5.1 mmol/L Chloride Level 106 98-107 mmol/L Carbon Dioxide Level 27 20-31 mmol/L Anion Gap 8 5-15 Blood Urea Nitrogen 19 9-23 mg/dL Creatinine 1.24 0.700-1.30 mg/dL Glomerular Filtration Rate Calc 66 >90 mL/min BUN/Creatinine Ratio 15.3 10.0-20.0 Serum Glucose 132 H 74-106 mg/dL Hemoglobin A1c 5.7 <5.7 % A1C Calcium Level 9.0 8.7-10.4 mg/dL Magnesium Level 2.2 1.6-2.6 mg/dL Troponin I High Sensitivity 147 *H </=54 ng/L Triglycerides Level 508 H < 150 mg/dL Cholesterol Level 201 H < 200 mg/dL LDL Cholesterol < 100 mg/dL HDL Cholesterol 29 L 40-59 mg/dL Thyroid Stimulating Hormone (TSH) 1.32 0.55-4.78 uIU/mL Test 05/30/25 12:35 Range/Units White Blood Count 4.3 L 4.4-10.8 10^3/uL Red Blood Count 5.38 4.5-5.90 10^6/uL Hemoglobin 14.2 13.5-17.5 g/dL Hematocrit 42.5 41.0-53.0 % Mean Corpuscular Volume 78.9 L 80.0-100.0 fL Mean Corpuscular Hemoglobin 26.5 L 28.0-32.0 pg Mean Corpuscular Hemoglobin Concent 33.5 32.0-36.0 g/dL Red Cell Distribution Width 14.2 11.8-14.3 % Platelet Count 167 140-450 10^3/uL Mean Platelet Volume 9.3 6.9-10.8 fL Neutrophils (%) (Auto) 49.1 37.0-80.0 % Lymphocytes (%) (Auto) 37.9 10.0-50.0 % Monocytes (%) (Auto) 9.9 0.0-12.0 % Eosinophils (%) (Auto) 2.5 0.0-7.0 % Basophils (%) (Auto) 0.6 0.0-2.0 % Neutrophils # (Auto) 2.1 1.6-8.6 10 ^3/uL Lymphocytes # (Auto) 1.6 0.4-5.4 10 ^3/uL Monocytes # (Auto) 0.4 0-1.3 10 ^3/uL Eosinophils # (Auto) 0.1 0-0.8 10 ^3/uL Basophils # (Auto) 0 0-0.2 10 ^3/uL Nucleated Red Blood Cells 0.2 % B-Type Natriuretic Peptide 18.03 0-100 pg/mL Assessment Chest pain, rule out ACS NSTEMI Hypertension Dyslipidemia-noncompliant Obesity Cannabis dependence Noncompliance Plan/Recommendation Given the risk factors, chest pain and NSTEMI, patient will be scheduled for left heart catheterization at 1st availability. Patient is agreeing to the procedure. Continue aspirin 81 mg daily. Added lisinopril 10 mg daily, continue amlodipine 10 mg daily Risk factor modification, including cessation of smoking/cannabis/alcohol Counseled patient regarding compliance to medications and healthy lifestyle Plan discussed with patient in which all questions have been answered Case discussed with Dr. Velazquez pt seen with CV team ongoing chest pain for days and exertional multiple cad risk factors, MJ, HTN, HL, not taking meds, fh of cad abnormal ecg recommend [facility], pt agrees to plan Plan discussed with: Patient GRIS SY RESIDENT May 31, 2025 11:45 PUSHPA VELAZQUEZ MD May 31, 2025 14:42
[2025-05-31] MEDS: LISINOPRIL 5 MG TAB PO ONE (12:50)
[2025-05-31] MEDS: IODIXANOL 320MG/ML 100ML BTL IV ONE (13:10)
[2025-05-31] MEDS: ANGIOMAX 250 MG VIAL IV ONE (13:22)
[2025-05-31] MEDS: VERAPAMIL 2.5MG/ML INJ 2ML VIAL IV ONE (13:22)
[2025-05-31] MEDS: MIDAZOLAM HCL 2MG/2ML 2ml VIAL (1mg/ml) ONE (13:23)
[2025-05-31] MEDS: fentaNYL CITRATE 100 MCG/2 ML VL ONE (13:23)
[2025-05-31] MEDS: SODIUM CHL 0.9% 0 ML ONE (13:23)
[2025-05-31] MEDS: LIDOCAINE 2%HCL (LOCAL ANESTH.) INJ 20ML MDV ONE (13:23)
--- NOTE | 2025-05-31 13:32 | DVHSR ---
APPROVED REPORT EXAM: Two-dimensional and M-mode echocardiogram with Doppler and color Doppler. Blood Pressure: 150/79 mmHg INDICATION Chest Pain RISK FACTORS Height: 5'11", Weight: 222 DIMENSIONS LVDd4.8 (3.8-5.7cm)LA (2D)4.2 (1.9-4.0cm)Aortic Root3.2 (2.0-3.7cm) LVDs3.0 (2.5-4.0cm)LA (MM) (1.9-4.0cm)Aortic Cusp Exc1.9 (1.5-2.0cm) EF (%) 65.0 (55-70%)Rt. Atrium4.9 (1.9-4.0cm)Asc. Aorta cm IVSd1.3 (0.7-1.1cm)RV (D)4.6 (1.8-2.4cm) PWd1.2 (0.7-1.1cm) Mitral Valve MitralMitral Stenosis E wave0.93m/sMV Mean GR.mmHg A wave0.81m/sMV Peak GR.mmHg E/A ratio1.12D MVAcm2 DECEL [id number] 1/2 Timems Aortic Valve Aortic ValveAortic Stenosis V10.82m/Dominique Mean GR.5mmHg V21.60m/Dominique Peak GR.10mmHg LVOT Diameter2.1 (1.8-2.4cm)Doppler AVA1.77cm2 Pulmonic Valve V21.44m/s Tricuspid Valve TR Velocity2.76m/s [id number] Other Information Quality : Rhythm : Bradycardia Conclusion lvef 60% moderate LVH concentric normal RV function normal atria no severe valve abnormalities noted
--- NOTE | 2025-05-31 14:26 | DVHOP2 ---
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 PREOPERATIVE DIAGNOSES: nstemi, ongoing angina, POSTOP DIAGNOSIS: moderate cad DESCRIPTION OF PROCEDURE: The patient or appropriate family signed informed consent understanding the risks, benefits and alternatives of the procedure, they wished to proceed. The patient was brought to the cardiac lab rn in n.p.o. state. The patient was prepped in a sterile fashion. Sedation was used per cardiac cath protocol. I administered 2 mL of 2% lidocaine to the right wrist. With an antegrade front wall puncture. I cannulated the right radial artery and placed a 6-[place] slender. Next, an intra-arterial spasmolytic was administered. Next, a - [place] catheter an xb 3.5 and jl 3 guide and were used for coronary angiogram and LVEDP measurement and pressure pullback. At the completion of procedure, all guides and wires were removed, and there were no immediate complications. FINDINGS: RCA: Moderate vessel off the right sinus of Valsalva, there is a prox RCA 60% tubular stenosis. mid and distal rca are small to moderate size with mild diffuse plaque. distal pda is small with diffuse plaque LEFT MAIN: Moderate size left main, it tri urcates into LAD and circumflex and ramus . patent CIRCUMFLEX: Moderate caliber vessel coming off the left main with no flow limiting stenosis. RAMUS mild proimal plaque LAD: LAD is a moderate caliber vessel coming of the left main. mid LAD has 40% stenosis CONCLUSIONS: 1. moderate non critical cad PLAN: Aggressive risk factor modification and medical management for the patient. asa statin zetia BB acei PUSHPA VELAZQUEZ MD May 31, 2025 14:26
[2025-05-31] MEDS: HEPARIN SODIUM (PORCINE) 5000 UNITS/ML 1ML VIAL ONE (14:28)
--- NOTE | 2025-05-31 14:28 | DVHPN2 ---
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 on and off. trop elevated, no EKG changes. denies smoking, alcohol, drug use. exercise regularly, first ever chest pain. physical exam aox4 clear breath sounds s1 s2 rrr abdomen soft nontender no LE edema labs ekg imaging reviewed assessment and plan chest pain likely angina htn obesity hld NSTEMI t1 vs t2 cardio consult appreciated plan for cath pending echo resume home meds diet cardiac dv ppx ambulatory full code Plan discussed with: Patient Date of Service: May 31, 2025 Billing Provider: COREY NUNES MD Common Visit Codes: [id number] INP/OBS CARE(HIGH) COREY NUNES MD May 31, 2025 14:28
[2025-05-31] MEDS: ACETAMINOPHEN 325 MG TAB PO PRN (16:28)
[2025-05-31] MEDS: ATORVASTATIN 20 MG TAB PO SCH (21:28)
[2025-06-01] VITALS (7 sets, daily range): BP systolic 122–155; BP diastolic 80–94; PULSE 40–50; RESP 14–18; TEMP 97.8–98.4; O2SAT 96–100
--- NOTE | 2025-06-01 00:23 | ECG ---
[facility] Test Date: 2025-05-30 Test Time: 15:00:41 Pat Name: STEPHANIE MORGAN Department: ED Room: 0223T Gender: M Process Development Manager: TEMI : 1965 Requested By: INEZ SMITH Order Number: [id number] Reading MD: Measurements Intervals [place] Rate: 52 P: 69 VT: 143 QRS: 37 QRSD: 90 T: 36 QT: 418 QTc: 389 Interpretive Statements Sinus rhythm Please click the below link to view image of tracing.
--- NOTE | 2025-06-01 04:10 | ECG ---
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
[2025-06-01 07:18] LABS: Anion Gap 7 (5-15); Carbon Dioxide 27 mmol/L (20-31); Chloride 107 mmol/L (98-107); Potassium 4.1 mmol/L (3.5-5.1); Sodium 141 mmol/L (136-145)
[2025-06-01 07:19] LABS: Calcium 8.8 mg/dL (8.7-10.4)
[2025-06-01 07:24] LABS: BUN/Creatinine Ratio 13.0 (10.0-20.0); Blood Urea Nitrogen 14 mg/dL (9-23); Glucose 92 mg/dL (74-106)
--- NOTE | 2025-06-01 08:42 | DVHPN2 ---
Progress Note Date Seen: Jun 01, 2025 Resident Creating Document: GRIS SY RESIDENT Medical Necessity Reason Pt with a Central, PICC or Fol: No Subjective Review of Systems 59-year-old male presented to the ER with a chief complaint of chest pain for the past couple of days. Patient reports midsternal chest pain, tightness in nature, nonradiating, constant, 8/10 in intensity, exacerbates with exertion, but unrelated to food. 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 Has been having this pain during cardiac workout in gym. He thinks the the pain is because of the massage chair. Denies shortness of breaths, palpitations, nausea, diaphoresis, any abdominal or urinary symptoms at this time. He does have history of dyslipidemia but stopped taking medications. Past medical history: Dyslipidemia Home medication: Denies Social history: Denies smoking/drinking/drug use Family history: Mother and father in 60s due to stroke and MO. brother had MO at the age of 55 05/31-Patient seen and examined in ER Holding. He reports feeling fine, patient seen ambulating without chest pain. EKG shows sinus rhythm, troponins slightly up trending. 06/01-patient seen and examined in bed. Reports intermittent chest pain, tightness in nature on exertion, resolving spontaneously. Eyes: No Pain, No Vision change, No Conjunctivae inflammation, No Eyelid inflammation, No Other, No Redness ENT: No Ear pain, No Ear discharge, No Nose pain, No Nose discharge, No Nose congestion, No Mouth pain, No Mouth swelling, No Throat pain, No Throat swelling, No Other Cardiovascular: Reports Chest Pain, No Palpitations, No Orthopnea, No PND, No Edema, No Lt Headedness, No Other Respiratory: No Cough, No Dry, No Shortness of breath, No SOB with exertion, No Wheezing, No Hemoptysis, No Pleuritic Pain, No Sputum, No Other Gastrointestinal: No Nausea, No Vomiting, No Abdominal Pain, No Diarrhea, No Constipation, No Melena, No Hematochezia, No Other Genitourinary: No Dysuria, No Frequency, No Incontinence, No Hematuria, No Retention, No Other Musculoskeletal: No other, No neck pain, No shoulder pain, No arm pain, No back pain, No hand pain, No leg pain, No foot pain Skin: No Rash, No Lesions, No Jaundice, No Bruising, No Other Objective vital signs Vital Sign Date Time Temp Pulse Resp B/P (MAP) Pulse Ox O2 Delivery O2 Flow Rate FiO2 06/01/25 07:37 45 14 98 Room Air* 0 21 06/01/25 05:00 98.4 155/91 (112) 98.4 Total Intake and Output 05/31/25 05/31/25 06/01/25 15:00 23:00 07:00 Intake Total 800 ml Balance 800 ml medications Current Medications Medications Dose Ordered Sig/Benito Route Start Time Stop Time Status Last Admin Dose Admin Aspirin 81 mg DAILY PO 05/31/25 10:00 05/31/25 08:27 81 MG Amlodipine Besylate 10 mg DAILY PO 05/31/25 10:00 05/31/25 08:28 10 MG Acetaminophen 650 mg Q6HP PRN PO 05/30/25 19:30 05/31/25 16:28 650 MG Nitroglycerin 0.4 mg Q5MINP PRN SL 05/30/25 19:30 Morphine Sulfate 2 mg Q30M PRN IV 05/30/25 19:30 Atorvastatin Calcium 40 mg HS PO 05/31/25 22:00 05/31/25 21:28 40 MG Lisinopril 10 mg DAILY PO 06/01/25 10:00 Examination Patient seen lying in the bed comfortably, no acute distress General: Obese, afebrile, palor, mucosae are moist Cardiovascular: Regular S1 and S2. No murmurs, gallops or rubs. No JVD elevation. No pedal edema Respiratory: Normal B/L air entry on room air. Clear lung sounds on auscultation Abdomen: Soft, nontender, nondistended, normoactive bowel sounds, no rebound tenderness, no organomegaly, no masses Genitourinary: Deferred MSK/skin: Mobilizes 4 limbs. Skin is dry and warm Neurological: No motor, no sensitive deficits, normal speech. Pupils are isocoric and reactive. Psych/Mental Status: A/Ox3 laboratory and microbiology Laboratory Tests 06/01/25 06:03 05/30/25 12:35 Test 06/01/25 06:03 Range/Units Serum Glucose 92 74-106 mg/dL Labs and/or images reviewed: Labs reviewed by me, Image(s) reviewed by me Problem List/Assessment/Plan Problem List/Assessment/Plan Chest pain, dt angina Moderate noncritical coronary artery disease NSTEMI Hypertension Dyslipidemia-noncompliant Obesity Cannabis dependence Noncompliance Patient underwent left heart catheterization 05/31- via right radial approach 05/31-with the following findings: RCA: Moderate vessel off the right sinus of Valsalva, there is a prox RCA 60% tubular stenosis. mid and distal rca are small to moderate size with mild diffuse plaque. distal pda is small with diffuse plaque LEFT MAIN: Moderate size left main, it tri urcates into LAD and circumflex and ramus . patent CIRCUMFLEX: Moderate caliber vessel coming off the left main with no flow limiting stenosis. RAMUS mild proimal plaque LAD: LAD is a moderate caliber vessel coming of the left main. mid LAD has 40% stenosis 05/3170-[id number]-ATKE 60%, no structural or valvular disease, moderate concentric LVH Plan/Recommendation Given the left heart catheterization findings, aggressive risk factor modification counseling was done at bedside. Patient is okay to be discharged per cardiac standpoint. Continue aspirin 81 mg daily. Continue lisinopril 10 mg, amlodipine 10 mg daily Continue atorvastatin 40 mg daily Counseled regarding Risk factor modification, including cessation of smoking/cannabis/alcohol Counseled patient regarding compliance to medications and healthy lifestyle Follow up with Cardiology as outpatient within the next 2 weeks Thank you for consulting Cardiology. Please call/text if you have any questions or concerns. Plan discussed with patient in which all questions have been answered Case discussed with Dr. Velazquez PT SEEN AND EXAMINED WITH CV TEAM AGREE WITH RESIDENT ASSESSMENT AND PLAN pt needs statin, zetia, and acei and CCB get ldl goal <70 Plan discussed with: Patient, Other (Nurse) My Orders My Orders Orders - GRIS SY Procedure Category Date Status Time Atorvastatin (Lipitor) PHA 05/31/25 In Process 22:00 Strict I & O RAMONA 05/31/25 In Process 09:03 Lisinopril Tablet PHA 06/01/25 In Process (Zestril Tablet) 10:00 GRIS SY Jun 01, 2025 08:42 PUSHPA VELAZQUEZ MD Jun 01, 2025 17:33
[2025-06-01] MEDS: LISINOPRIL 5 MG TAB PO SCH (09:38)
[2025-06-01] MEDS ORDERED: ASPI-325 PO (11:30)
[2025-06-01] MEDS ORDERED: LISI-275 PO (11:30)
[2025-06-01] MEDS ORDERED: AMLO1TAB22 PO (11:30)
[2025-06-01] MEDS ORDERED: ATOR20TA50 PO (11:30)
--- NOTE | 2025-06-01 14:27 | DVHDS2 ---
Discharge Summary Date of Admission May 30, 2025 at 19:24 Date of Discharge: Jun 01, 2025 Labs/Diagnostic Data: Laboratory Results Test 06/01/25 06:03 05/31/25 09:33 05/31/25 05:22 05/30/25 15:42 Sodium Level 141 mmol/L (136-145) Potassium Level 4.1 mmol/L (3.5-5.1) Chloride Level 107 mmol/L (98-107) Carbon Dioxide Level 27 mmol/L (20-31) Anion Gap 7 (5-15) Blood Urea Nitrogen 14 mg/dL (9-23) Creatinine 1.08 mg/dL (0.700-1.30) Glomerular Filtration Rate Calc 78 mL/min (>90) BUN/Creatinine Ratio 13.0 (10.0-20.0) Serum Glucose 92 mg/dL (74-106) Calcium Level 8.8 mg/dL (8.7-10.4) Urine Opiates Screen Neg (NEGATIVE) Urine Fentanyl Screen Neg (NEGATIVE) Urine Barbiturates Screen Neg (NEGATIVE) Urine Phencyclidine Screen Neg (NEGATIVE) Urine Amphetamines Screen Neg (NEGATIVE) Urine Benzodiazepines Screen Neg (NEGATIVE) Urine Cocaine Screen Neg (NEGATIVE) Urine Cannabinoids Screen Pos (NEGATIVE) Hemoglobin A1c 5.7 % A1C (<5.7) Magnesium Level 2.2 mg/dL (1.6-2.6) Troponin I High Sensitivity 147 ng/L (</=54) Triglycerides Level 508 mg/dL (< 150) Cholesterol Level 201 mg/dL (< 200) LDL Cholesterol mg/dL (< 100) HDL Cholesterol 29 mg/dL (40-59) Test 05/30/25 13:30 05/30/25 12:35 Thyroid Stimulating Hormone (TSH) 1.32 uIU/mL (0.55-4.78) White Blood Count 4.3 10^3/uL (4.4-10.8) Red Blood Count 5.38 10^6/uL (4.5-5.90) Hemoglobin 14.2 g/dL (13.5-17.5) Hematocrit 42.5 % (41.0-53.0) Mean Corpuscular Volume 78.9 fL (80.0-100.0) Mean Corpuscular Hemoglobin 26.5 pg (28.0-32.0) Mean Corpuscular Hemoglobin Concent 33.5 g/dL (32.0-36.0) Red Cell Distribution Width 14.2 % (11.8-14.3) Platelet Count 167 10^3/uL (140-450) Mean Platelet Volume 9.3 fL (6.9-10.8) Neutrophils (%) (Auto) 49.1 % (37.0-80.0) Lymphocytes (%) (Auto) 37.9 % (10.0-50.0) Monocytes (%) (Auto) 9.9 % (0.0-12.0) Eosinophils (%) (Auto) 2.5 % (0.0-7.0) Basophils (%) (Auto) 0.6 % (0.0-2.0) Neutrophils # (Auto) 2.1 10 ^3/uL (1.6-8.6) Lymphocytes # (Auto) 1.6 10 ^3/uL (0.4-5.4) Monocytes # (Auto) 0.4 10 ^3/uL (0-1.3) Eosinophils # (Auto) 0.1 10 ^3/uL (0-0.8) Basophils # (Auto) 0 10 ^3/uL (0-0.2) Nucleated Red Blood Cells 0.2 % B-Type Natriuretic Peptide 18.03 pg/mL (0-100) Other Laboratory Tests 06/01/25 06:03 05/30/25 12:35 Final Diagnosis/Problems List moderate CAD w/o acute AK HTN HLD Discharge Disposition: Home Discharge Instruct/Medications Diet: Consistent carbohydrate, Cardiac 2g Na,low cholest Activity: No Restrictions, As Tolerated Follow Up/Referral: dc clinic monday 06/04 dr perdomo Medications: asa lipitor amlodipine Scheduled Amlodipine Besylate (Amlodipine Besylate), 10 MG PO DAILY Aspirin (Aspirin Low Dose), 81 MG PO DAILY Atorvastatin Calcium (Atorvastatin Calcium), 40 MG PO HS Lisinopril (Lisinopril), 10 MG PO DAILY Scheduled PRN Acetaminophen W/ Codeine (Tylenol W/Cod #3), 1 TAB PO Q4HP PRN Discharge Statement: "Patient was advised to return to the ER or call 911 if any headaches, dizziness, shortness of breath, chest pain, abdominal pain, bleeding, fevers, or worsening of medical condition. Patient was counseled about treatment plan, medications, possible side effects, patientverbalized understanding. All questions were answered to the best of my ability. This discharge took greater then 30 minutes in planning, reviewing documentation, counseling the patient, and discussing with other team members." ASSESSMENT ASSESSMENT Assessment moderate CAD w/o acute AK HTN HLD Date of Service: Jun 01, 2025 Billing Provider: COREY NUNES MD Common Visit Codes: 14864-YTL/OBS DISCH DAY >30min COREY NUNES MD Jun 01, 2025 14:27
== END 2025-06-01 15:00 | disposition home or self-care (01) | DRG 287 ==
LOC: ER 11:57 → OVERFLOW 19:24 → TELE-CENTR 05-31 16:15
PROVIDERS: ADMIT Student in an Organized Health Care Education/Training Program; ATTEND Student in an Organized Health Care Education/Training Program
PROC: 4A023N7 Measurement of Cardiac Sampling and Pressure, Left Heart, Percutaneous Approach (ICD-10-PCS; principal; 2025-05-31)
PROC: B211YZZ Fluoroscopy of Multiple Coronary Arteries using Other Contrast (ICD-10-PCS; 2025-05-31)
DX: I25.10 Atherosclerotic heart disease of native coronary artery without angina pectoris (principal); E78.5 Hyperlipidemia, unspecified; E66.9 Obesity, unspecified; I10 Essential (primary) hypertension; F12.20 Cannabis dependence, uncomplicated; Z68.30 Body mass index [BMI] 30.0-30.9, adult; Z82.49 Family history of ischemic heart disease and other diseases of the circulatory system; Z82.3 Family history of stroke; Z63.4 Disappearance and death of family member; Z91.199 Patient's noncompliance with other medical treatment and regimen due to unspecified reason; Z79.82 Long term (current) use of aspirin
CPT/HCPCS: 36415; 71045; 80048; 80061; 80307; 83036; 83735; 83880; 84443; 84484; 85025; 93005; 93306; 93458; 99152; 99291; G0378; J2250; Q9967

== ENCOUNTER 2025-07-28 04:50 | Inpatient (IN) | payer BC ==
[~2025-07-28] VITALS: Ht 175.3 cm; Wt 100.0 kg
[~2025-07-28 04:50] MED LIST changes: -ACE3T PO; +ASPI-325 PO; +ATOR20TA50 PO; +LISI-275 PO
--- NOTE | 2025-07-28 05:19 | ECG ---
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
[2025-07-28 05:20] VITALS: PULSE 61; RESP 17; O2SAT 93
--- NOTE | 2025-07-28 05:22 | ED.PDOC ---
History of Present Illness HPI Comments 59 year-old male presents to the ED via EMS with a chief complaint of dizzy spells with associated N/V as of 0330 this morning. Patient reports going to bed around 2200 last night, where he was completely normal. Patient states at approx. 0330 this morning, he went to urinate, then went to lay down, when diz ziness and vertigo begun onset. Patient has a Hx of HTN and High Lipids but denies these symptoms happening before. He reports his heart rate usually runs in the 50s. No history of vertigo in the past. Patient has no further complaints or modifying factors at this time. Patient denies symptoms of LOC, weakness, slurred speech, fever, or chills. [facility] and had cardiac catheterizations showing noncritical coronary artery disease. REVIEW OF SYSTEMS: General: No fever, no chills, or fatigue HEENT: No sore throat, no earache, no congestion, no neck pain. Cardiac: No chest pain. No palpitations. Lungs: No shortness of breath, no cough. GI: POS N/V, no diarrhea, no constipation, no abdominal pain : No dysuria, frequency, or urgency. No hematuria. Musculoskeletal: No joint pain , no joint swelling, no extremity edema. Skin: No rash, no itching. Neuro: POS dizzy spells, No headache, no weakness (And as sated in HPI) PHYSICAL EXAM: General: Awake, alert and oriented. No acute distress. Skin: Skin in warm, dry and intact. Appropriate color for ethnicity. HEENT: Positive nystagmus. The head is normocephalic and atraumatic. Conjunctivae are clear without exudates or hemorrhage. Oral mucosa is pink and moist Neck: The neck is supple with normal range of motion. No JVD. Cardiac: Heart rate and rhythm are normal. No murmurs, gallops, or rubs are auscultated. Respiratory: No signs of respiratory distress. Lung sounds are clear in all lobes bilaterally without rales, rhonchi, or wheezes. Abdominal: Abdomen is soft, non-tender without distention, guarding or rigidity. Bowel sounds are present and normoactive in all four quadrants. Extremities: Strength in UE intact. Lower extremities without edema. Neurological: The patient is awake, alert and oriented to person, place, and time with normal speech. Speech is clear. There is no facial asymmetry. Psychiatric: Appropriate mood and affect. Good judgement and insight. Chief Complaint: Dizziness Time Seen by MD: 05:09 Reviewed Notes: Medications, Allergies Allergies: Coded Allergies: NO KNOWN ALLERGIES (Unverified , 06/17/24) Home Meds Active Scripts Lisinopril (Lisinopril) 5 Mg Tab, 10 MG PO DAILY for 30 Days, #60 TAB Prov:[facility] 06/01/25 Atorvastatin Calcium (ATORVASTATIN CALCIUM) 20 Mg Tab, 40 MG PO HS for 30 Days, #60 TAB [facility] 06/01/25 Aspirin (Aspirin Low Dose) 81 Mg Tab, 81 MG PO DAILY for 30 Days, #30 TAB Prov[facility] 06/01/25 Amlodipine Besylate (Amlodipine Besylate) 5 Mg Tab, 10 MG PO DAILY for 30 Days, #30 MG Prov:[facility] 06/01/25 Information Source: Patient, Emergency Med Personnel Mode of Arrival: EMS Severity: Moderate Timing: Hours Duration: Since onset Past Medical History PAST MEDICAL HISTORY: High Lipids, HTN Surgical History: Denies all surgeries Family History Family History: Reviewed,noncontributory to illness Social History Smoker: Non-Smoker Alcohol: Denies ETOH Use Drugs: Denies Drug Use Lives In: Home Was a procedure done? Was a procedure done?: No EKG EKG : Pulse Rate (adult): 49 [place]: Normal Cardiac Rhythm: SB Comments No STEMI. Differential Dx Considerations may include: Differential diagnoses considered include but are not limited to cardiac structural disease, arrhythmia, acute coronary syndrome, orthostasis, pulmonary embolism, dissection, seizure, basilar stroke, other. X-Ray, Labs, Meds, VS Vital Signs Date Time Temp Pulse Resp B/P (MAP) Pulse Ox O2 Delivery O2 Flow Rate FiO2 07/28/25 09:36 56 14 146/79 (101) 96 07/28/25 07:19 51 11 98 Room Air* 0 21 07/28/25 07:19 97.3 51 11 135/73 (93) 98 97.3 07/28/25 06:00 63 12 126/64 (84) 95 07/28/25 05:22 49 07/28/25 05:20 61 17 93 Room Air* 0 21 07/28/25 05:15 97.7 61 17 132/68 (89) 93 97.7 07/28/25 05:02 49 07/28/25 04:59 98.0 50 16 132/78 99 98.0 Lab Test 07/28/25 06:04 07/28/25 05:44 Range/Units White Blood Count 5.4 4.4-10.8 10^3/uL Red Blood Count 5.41 4.5-5.90 10^6/uL Hemoglobin 14.1 13.5-17.5 g/dL Hematocrit 42.4 41.0-53.0 % Mean Corpuscular Volume 78.3 L 80.0-100.0 fL Mean Corpuscular Hemoglobin 26.2 L 28.0-32.0 pg Mean Corpuscular Hemoglobin Concent 33.4 32.0-36.0 g/dL Red Cell Distribution Width 14.3 11.8-14.3 % Platelet Count 148 140-450 10^3/uL Mean Platelet Volume 9.5 6.9-10.8 fL Neutrophils (%) (Auto) 70.0 37.0-80.0 % Lymphocytes (%) (Auto) 21.9 10.0-50.0 % Monocytes (%) (Auto) 6.5 0.0-12.0 % Eosinophils (%) (Auto) 1.4 0.0-7.0 % Basophils (%) (Auto) 0.2 0.0-2.0 % Neutrophils # (Auto) 3.8 1.6-8.6 10 ^3/uL Lymphocytes # (Auto) 1.2 0.4-5.4 10 ^3/uL Monocytes # (Auto) 0.3 0-1.3 10 ^3/uL Eosinophils # (Auto) 0.1 0-0.8 10 ^3/uL Basophils # (Auto) 0 0-0.2 10 ^3/uL Nucleated Red Blood Cells 0.1 % Sodium Level 143 136-145 mmol/L Potassium Level 3.9 3.5-5.1 mmol/L Chloride Level 109 H 98-107 mmol/L Carbon Dioxide Level 23 20-31 mmol/L Anion Gap 11 5-15 Blood Urea Nitrogen 14 9-23 mg/dL Creatinine 1.18 0.700-1.30 mg/dL Glomerular Filtration Rate Calc 70 >90 mL/min BUN/Creatinine Ratio 11.9 10.0-20.0 Serum Glucose 136 H 74-106 mg/dL Calcium Level 8.7 8.7-10.4 mg/dL Troponin I High Sensitivity 5 </=54 ng/L POC Glucose 157 H 70-106 mg/dl Current Medications Medications (Trade) Dose Ordered Sig/Benito Route Start Time Stop Time Status Last Admin Meclizine HCl (Antivert Tablet) 75 mg ONCE ONCE PO 07/28/25 05:15 07/28/25 05:18 DC 07/28/25 05:57 Ondansetron HCl (Zofran) 4 mg ONCE ONCE IV 07/28/25 05:15 07/28/25 05:18 DC 07/28/25 05:32 Sodium Chloride 1,000 ml @ 1,000 mls/hr Q1H ONCE IV 07/28/25 05:15 07/28/25 06:14 DC 07/28/25 05:30 Metoclopramide HCl (Reglan Injection) 10 mg ONCE ONCE IV 07/28/25 07:45 07/28/25 07:49 DC 07/28/25 10:05 Acetaminophen (Tylenol Tablet) 650 mg ONCE ONCE PO 07/28/25 07:45 07/28/25 07:49 DC 07/28/25 10:05 Sodium Chloride 1,000 ml @ 1,000 mls/hr Q1H ONCE IV 07/28/25 07:45 07/28/25 08:44 DC 07/28/25 10:05 Time of 1ST Reevaluation: 05:15 Reevaluation 1ST: Unchanged Patient Education/Counseling: Other Family Education/Counseling: No Family Present Change of Shift?: Yes (Signed out to Dr. Ji at 0600 pending lab results and re-evaluation.) SEPSIS Sepsis Screen Date sepsis recognized/suspect: Jul 28, 2025 Time Sepsis recognized/suspect: 0505 Recent Procedure: No On Antibiotic Therapy: No Respiratory Rate >20: No Heart Rate >90: No Temp<36 C (96.8 F) or >38.3 C: No SBP <90 or MAP <65 mmHG: No New Acute Mental Status Change: No Is the patient on CPAP, BIPAP,: No Physician Orders Chest Xray 1 View (07/28/25 05:14) Blood Glucose Assessment (07/28/25 05:14) Continous Pulse Oximetry (07/28/25 05:14) Notify Md If Abnormal Vs (07/28/25 05:14) Saline Lock (07/28/25 05:14) Orthostatic Vital Signs (07/28/25 ) Production 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 Welder (07/28/25 ) Ondansetron Hcl (Zofran) (07/28/25 05:15) Head Without Contrast (07/28/25 07:39) Vital Signs Date Time Temp Pulse Resp B/P (MAP) Pulse Ox O2 Delivery O2 Flow Rate FiO2 07/28/25 09:36 56 14 146/79 (101) 96 07/28/25 07:19 51 11 98 Room Air* 0 21 07/28/25 07:19 97.3 51 11 135/73 (93) 98 97.3 07/28/25 06:00 63 12 126/64 (84) 95 07/28/25 05:22 49 07/28/25 05:20 61 17 93 Room Air* 0 21 07/28/25 05:15 97.7 61 17 132/68 (89) 93 97.7 07/28/25 05:02 49 07/28/25 04:59 98.0 50 16 132/78 99 98.0 Laboratory Tests Test 07/28/25 06:04 White Blood Count 5.4 10^3/uL (4.4-10.8) Departure 1 Departure Time of Disposition: 06:00 Impression: Primary Impression: Vertigo Disposition: 09 ADMITTED INPATIENT Condition: Stable Critical Care Note Critical Care Time?: No Stability Stability form required: No Heart Score Heart Score: Heart Score Response (Comments) Value History Slightly Suspicious 0 EKG Normal 0 Age 45-64 1 Risk Factors 1 or 2 risk factors 1 Troponin N/A 0 Total 2 I personally scribed for ISABELLE PAYTON MD ([email or web address]) on 07/28/25 at 05:22. Electronically submitted by Betty Ross ([facility] [employer]). ISABELLE PAYTON MD Jul 28, 2025 05:22
[2025-07-28] MEDS: SODIUM CHLORIDE 0.9% 1,000 ML IV ONE ×3 (05:30→11:30)
[2025-07-28] MEDS: ONDANSETRON HCL 4 MG/2 ML VIAL IV ONE (05:32)
[2025-07-28] MEDS: MECLIZINE HCL 25 MG TAB PO ONE (05:57)
--- NOTE | 2025-07-28 06:21 | DVH ---
CHEST RADIOGRAPH INDICATION: Dizziness TECHNIQUE: Single frontal view of the chest was obtained COMPARISON: XY CHEST PORTABLE on DOS: 05/30/25, XY CHEST TWO VIEWS ROUTINE on DOS: 03/04/25 FINDINGS: Lines and Tubes: None Lungs: Clear Pleura: No effusion. No pneumothorax. Cardiomediastinal contours: Unremarkable Bones: Unremarkable IMPRESSION: 1. No acute disease.
[2025-07-28 06:32] LABS: Hematocrit 42.4 % (41.0-53.0); Hemoglobin 14.1 g/dL (13.5-17.5); Mean Corpuscular Hemoglobin 26.2 pg (28.0-32.0); Mean Corpuscular Volume 78.3 fL (80.0-100.0); Nucleated Red Blood Cells % 0.1 %
[2025-07-28 06:43] LABS: Potassium 3.9 mmol/L (3.5-5.1); Sodium 143 mmol/L (136-145)
[2025-07-28 06:44] LABS: Anion Gap 11 (5-15); Carbon Dioxide 23 mmol/L (20-31)
[2025-07-28 06:49] LABS: BUN/Creatinine Ratio 11.9 (10.0-20.0); Blood Urea Nitrogen 14 mg/dL (9-23)
[2025-07-28 06:53] LABS: Calcium 8.7 mg/dL (8.7-10.4); Chloride 109 mmol/L (98-107); Glucose 136 mg/dL (74-106)
[2025-07-28 07:19] VITALS: PULSE 51; RESP 11; O2SAT 98
--- NOTE | 2025-07-28 08:40 | DVH ---
CLINICAL INFORMATION: Near syncope. TECHNIQUE: Axial imaging was obtained through the brain without contrast. Coronal and sagittal reformatted images were obtained, reviewed, and stored. Images were reviewed in brain and bone windows. All CT scans at this medical facility are performed using dose modulation techniques as appropriate to a performed exam including the following: Automated exposure control was utilized; adjustment of the MA and/or KV according to patient size; and use of iterative reconstruction technique. CTDIvol = 64.65 mGy DLP = 1144.58 mGy-cm COMPARISON: None FINDINGS: There is no acute intracranial hemorrhage. No mass effect or midline shift. The ventricles and sulci are within normal limits in size for age. Basal cisterns are patent. The calvarium is unremarkable. Paranasal sinuses and mastoid air cells are clear. IMPRESSION: No CT evidence of acute intracranial abnormality.
[2025-07-28] MEDS: ACETAMINOPHEN 325 MG TAB PO ONE (10:05)
[2025-07-28] MEDS: METOCLOPRAMIDE HCL 5MG/ml INJ 2ml VIAL IV ONE (10:05)
[2025-07-28] MEDS ORDERED: MECLIZINE HCL 25 MG TAB PO PRN (11:30)
[2025-07-28] MEDS ORDERED: HYDROcodone-ACET 5/325MG TAB PO PRN (11:30)
--- NOTE | 2025-07-28 11:30 | DVHHP2 ---
History of Present Illness Reason for Visit: Dizziness History of Present Illness Alcides Roa is a 59-year-old male with past medical history of hypertension, and hyperlipidemia, who came to the hospital for dizziness. Patient states he went to bed about 2200, woke up at 0300 to go to the bathroom, went to sit in his recliner and the room began to spin. He states he tried to move and had difficulty ambulating, became nauseated and vomited twice before he was able to get to his phone to call EMS. Past Surgical History: Other (right foot, vasectomy) Smoke: No ALCOHOL: none Drugs: None Lives: Alone Domestic Violence: Neg Review of Systems Constitutional: No: Fever, Chills, Sweats, Weakness, Malaise, Other Eyes: No: Pain, Vision change, Conjunctivae inflammation, Eyelid inflammation, Other, Redness ENT: No: Ear pain, Ear discharge, Nose pain, Nose discharge, Nose congestion, Mouth pain, Mouth swelling, Throat pain, Throat swelling, Other Respiratory: No: Cough, Dry, Shortness of breath, SOB with excertion, Wheezing, Hemoptysis, Pleuritic Pain, Sputum, Wheezing, Other Cardiovascular: No: Chest Pain, Palpitations, Orthopnea, Paroxysmal Noc. Dyspnea, Edema, Lt Headedness, Other Gastrointestinal: Nausea, Vomiting; No: Abdominal Pain, Diarrhea, Constipation, Melena, Hematochezia, Other Genitourinary: No Dysuria, No Frequency, No Incontinence, No Hematuria, No Retention, No Other Musculoskeletal: No: other, neck pain, shoulder pain, arm pain, back pain, hand pain, leg pain, foot pain Skin: No: Rash, Lesions, Jaundice, Bruising, Other Neurological: Other (Dizziness); No: Weakness, Numbness, Incoordination, Change in speech, Confusion, Seizures Allergies: Coded Allergies: NO KNOWN ALLERGIES (Unverified , 06/17/24) Medications Current Medications Medications Dose Ordered Sig/Benito Route Start Time Stop Time Status Last Admin Dose Admin Sodium Chloride 10 ml Q8HR IV 07/28/25 14:00 UNV Acetaminophen/ Hydrocodone Bitart 1 tab Q4HP PRN PO 07/28/25 11:30 UNV Ondansetron HCl 4 mg Q4HP PRN IV 07/28/25 11:30 UNV Docusate Sodium 100 mg BIDPRN PRN PO 07/28/25 11:30 UNV Acetaminophen 650 mg Q6HP PRN PO 07/28/25 11:30 UNV Meclizine HCl 25 mg Q6HPRN PRN PO 07/28/25 11:30 UNV Exam Vital Signs Vital Signs Date Time Temp Pulse Resp B/P (MAP) Pulse Ox O2 Delivery O2 Flow Rate FiO2 07/28/25 09:36 56 14 146/79 (101) 96 07/28/25 07:19 Room Air* 0 21 07/28/25 07:19 97.3 97.3 General Appearance: Alert, Oriented X3, Cooperative, mild distress HEENT: Atraumatic, PERRLA Respiratory: Clear to auscultation, Normal air movement Cardiovascular: Normal S1, Normal S2, Other (SB-SR) Abdominal: Normal bowel sounds, Soft, No tenderness Extremities: No clubbing, No cyanosis, No edema, Normal pulses Skin: No rashes, No breakdown, No significant lesion Neuro: Normal gait, Normal speech, Strength at 5/5 X4 ext Psych/Mental Status: Mental status NL, Other (Dizziness) Labs/Xrays Labs Test 07/28/25 06:04 07/28/25 05:44 Range/Units White Blood Count 5.4 4.4-10.8 10^3/uL Red Blood Count 5.41 4.5-5.90 10^6/uL Hemoglobin 14.1 13.5-17.5 g/dL Hematocrit 42.4 41.0-53.0 % Mean Corpuscular Volume 78.3 L 80.0-100.0 fL Mean Corpuscular Hemoglobin 26.2 L 28.0-32.0 pg Mean Corpuscular Hemoglobin Concent 33.4 32.0-36.0 g/dL Red Cell Distribution Width 14.3 11.8-14.3 % Platelet Count 148 140-450 10^3/uL Mean Platelet Volume 9.5 6.9-10.8 fL Neutrophils (%) (Auto) 70.0 37.0-80.0 % Lymphocytes (%) (Auto) 21.9 10.0-50.0 % Monocytes (%) (Auto) 6.5 0.0-12.0 % Eosinophils (%) (Auto) 1.4 0.0-7.0 % Basophils (%) (Auto) 0.2 0.0-2.0 % Neutrophils # (Auto) 3.8 1.6-8.6 10 ^3/uL Lymphocytes # (Auto) 1.2 0.4-5.4 10 ^3/uL Monocytes # (Auto) 0.3 0-1.3 10 ^3/uL Eosinophils # (Auto) 0.1 0-0.8 10 ^3/uL Basophils # (Auto) 0 0-0.2 10 ^3/uL Nucleated Red Blood Cells 0.1 % Sodium Level 143 136-145 mmol/L Potassium Level 3.9 3.5-5.1 mmol/L Chloride Level 109 H 98-107 mmol/L Carbon Dioxide Level 23 20-31 mmol/L Anion Gap 11 5-15 Blood Urea Nitrogen 14 9-23 mg/dL Creatinine 1.18 0.700-1.30 mg/dL Glomerular Filtration Rate Calc 70 >90 mL/min BUN/Creatinine Ratio 11.9 10.0-20.0 Serum Glucose 136 H 74-106 mg/dL Calcium Level 8.7 8.7-10.4 mg/dL Troponin I High Sensitivity 5 </=54 ng/L POC Glucose 157 H 70-106 mg/dl CHEST RADIOGRAPH FINDINGS: Lines and Tubes: None Lungs: Clear Pleura: No effusion. No pneumothorax. Cardiomediastinal contours: Unremarkable Bones: Unremarkable IMPRESSION: 1. No acute disease. TECHNIQUE: Axial imaging was obtained through the brain without contrast. FINDINGS: There is no acute intracranial hemorrhage. No mass effect or midline shift. The ventricles and sulci are within normal limits in size for age. Basal cisterns are patent. The calvarium is unremarkable. Paranasal sinuses and mastoid air cells are clear. IMPRESSION: No CT evidence of acute intracranial abnormality. SEPSIS Sepsis Screen Date sepsis recognized/suspect: Jul 28, 2025 Time Sepsis recognized/suspect: 07 Recent Procedure: No On Antibiotic Therapy: No Respiratory Rate >20: No Heart Rate >90: No Temp<36 C (96.8 F) or >38.3 C: No SBP <90 or MAP <65 mmHG: No New Acute Mental Status Change: No Is the patient on CPAP, BIPAP,: No Physician Orders Chest Xray 1 View (07/28/25 05:14) Blood Glucose Assessment (07/28/25 05:14) Continous Pulse Oximetry (07/28/25 05:14) Notify Md If Abnormal Vs (07/28/25 05:14) Saline Lock (07/28/25 05:14) Orthostatic Vital Signs (07/28/25 ) Flight Surveyor (07/28/25 ) Ondansetron Hcl (Zofran) (07/28/25 05:15) Head Without Contrast (07/28/25 07:39) Admit (07/28/25 11:20) Code Status (07/28/25 11:20) Sodium Chloride Lock (Saline Lock Ns) (07/28/25 14:00) Hydrocodone-Acet 5/325mg Tab ([place] 5/32 (07/28/25 11:30) Ondansetron Hcl (Zofran) (07/28/25 11:30) Docusate Sodium Capsule (Colace Capsule) (07/28/25 11:30) Fall Risk Precautions In Place QSHIFT (07/28/25 11:20) Complete Blood Count (07/29/25 04:00) Comprehensive Metabolic Panel (07/29/25 04:00) Cardiac Diet-2gna,Lofat,Lochol (07/28/25 Lunch) Condition: Serious (07/28/25 11:20) Acetaminophen Tablet (Tylenol Tablet) (07/28/25 11:30) Meclizine Tablet (Antivert Tablet) (07/28/25 11:30) Sodium Chloride 0.9% (07/28/25 11:30) Vital Signs Date Time Temp Pulse Resp B/P (MAP) Pulse Ox O2 Delivery O2 Flow Rate FiO2 07/28/25 09:36 56 14 146/79 (101) 96 07/28/25 07:19 51 11 98 Room Air* 0 21 07/28/25 07:19 97.3 51 11 135/73 (93) 98 97.3 07/28/25 06:00 63 12 126/64 (84) 95 07/28/25 05:22 49 07/28/25 05:20 61 17 93 Room Air* 0 21 07/28/25 05:15 97.7 61 17 132/68 (89) 93 97.7 07/28/25 05:02 49 07/28/25 04:59 98.0 50 16 132/78 99 98.0 Laboratory Tests Test 07/28/25 06:04 White Blood Count 5.4 10^3/uL (4.4-10.8) Medications Medications Dose Ordered Sig/Benito Route Start Time Stop Time Status Last Admin Dose Admin Acetaminophen 650 mg ONCE ONCE PO 07/28/25 07:45 07/28/25 07:49 DC 07/28/25 10:05 650 MG Meclizine HCl 75 mg ONCE ONCE PO 07/28/25 05:15 07/28/25 05:18 DC 07/28/25 05:57 75 MG Metoclopramide HCl 10 mg ONCE ONCE IV 07/28/25 07:45 07/28/25 07:49 DC 07/28/25 10:05 10 MG Ondansetron HCl 4 mg ONCE ONCE IV 07/28/25 05:15 07/28/25 05:18 DC 07/28/25 05:32 4 MG Sodium Chloride 1,000 ml @ 1,000 mls/hr Q1H ONCE IV 07/28/25 05:15 07/28/25 06:14 DC 07/28/25 05:30 1,000 MLS/HR Sodium Chloride 1,000 ml @ 1,000 mls/hr Q1H ONCE IV 07/28/25 07:45 07/28/25 08:44 DC 07/28/25 10:05 1,000 MLS/HR Assessment/Plan Assessment/Plan Assessment: Vertigo, Intractable nausea and vomiting, Hypertension, Hyperlipidemia, Plan: Admit to Med-Surg, IV hydration, IV antiemetics, Meclizine PRN, Home medications reconciled, Plan discussed with: Patient My Orders Orders - TRANG KRISHNAMURTHY [employer] Procedure Category Date Status Time Admit ADMIT 07/28/25 Transmitted 11:20 Code Status CODE 07/28/25 Transmitted 11:20 Sodium Chloride Lock PHA 07/28/25 Logged (Saline Lock Ns) 14:00 Hydrocodone-Acet PHA 07/28/25 Logged 5/325mg Tab ([place] 11:30 Ondansetron Hcl PHA 07/28/25 Logged (Zofran) 11:30 Docusate Sodium PHA 07/28/25 Logged Capsule (Colace 11:30 Fall Risk Precautions RAMONA 07/28/[address] 11:20 Complete Blood Count LAB 07/29/25 Verified 04:00 Comprehensive LAB 07/29/25 Verified Metabolic Panel 04:00 Cardiac DIET 07/28/25 Transmitted Diet-2gna,Lofat,Lochol Lunch Condition: Serious RAMONA 07/28/25 Transmitted 11:20 Acetaminophen Tablet PHA 07/28/25 Logged (Tylenol Tablet) 11:30 Meclizine Tablet PHA 07/28/25 Logged (Antivert Tablet) 11:30 Sodium Chloride 0.9% PHA 07/28/25 Logged 11:30 Date of Service: Jul 28, 2025 Billing Provider: TRANG KRISHNAMURTHY Common Visit Codes: [id number] INP/OBS CARE (MOD) TRANG KRISHNAMURTHY Jul 28, 2025 11:29
[2025-07-28] MEDS: SODIUM CHLOR 0.9% PF (SALINE LOCK) 10ML VIAL/SYR IV SCH (14:00)
[2025-07-28 14:06] VITALS: PULSE 71; RESP 18; O2SAT 97
[2025-07-28 17:04] VITALS: BP 157/80; PULSE 70; RESP 18; TEMP 97.8; O2SAT 98
[2025-07-28] MEDS: METOCLOPRAMIDE HCL 5MG/ml INJ 2ml VIAL IV SCH (18:40)
[2025-07-28 20:00] VITALS: PULSE 60; RESP 20; O2SAT 95
[2025-07-28 21:00] VITALS: BP 154/69; PULSE 60; RESP 20; TEMP 98.9; O2SAT 95
[2025-07-28] MEDS: ATORVASTATIN 20 MG TAB PO SCH (21:18)
[2025-07-29] VITALS (9 sets, daily range): BP systolic 137–168; BP diastolic 52–86; PULSE 57–67; RESP 16–19; TEMP 97.7–98.6; O2SAT 95–100
[2025-07-29 07:16] LABS: Hemoglobin 13.9 g/dL (13.5-17.5)
[2025-07-29 07:20] LABS: Hematocrit 41.8 % (41.0-53.0); Mean Corpuscular Hemoglobin 26.1 pg (28.0-32.0); Mean Corpuscular Volume 78.6 fL (80.0-100.0); Nucleated Red Blood Cells % 0.0 %
[2025-07-29 07:30] LABS: Alanine Aminotransferase 22 U/L (7-40); Albumin 4.2 g/dL (3.2-4.8); Alkaline Phosphatase 77 U/L (46-116); Anion Gap 11 (5-15); BUN/Creatinine Ratio 8.9 (10.0-20.0); Bilirubin, Total 0.6 mg/dL (0.2-1.0); Calcium 9.0 mg/dL (8.7-10.4); Carbon Dioxide 23 mmol/L (20-31); Potassium 3.9 mmol/L (3.5-5.1); Sodium 142 mmol/L (136-145); Total Protein 7.1 g/dL (5.7-8.2)
[2025-07-29 07:31] LABS: Blood Urea Nitrogen 8 mg/dL (9-23); Chloride 108 mmol/L (98-107); Glucose 117 mg/dL (74-106)
[2025-07-29] MEDS: ACETAMINOPHEN 325 MG TAB PO PRN (08:44)
[2025-07-29] MEDS: ASPirin-EC 81 mg tab PO SCH (08:44)
[2025-07-29] MEDS: LISINOPRIL 5 MG TAB PO SCH (08:45)
--- NOTE | 2025-07-29 11:05 | DVH ---
MRI BRAIN WITHOUT CONTRAST HISTORY: Left sided weakness. COMPARISON: CT HEAD WITHOUT CONTRAST on DOS: 07/28/25. TECHNIQUE: MRI of the brain was obtained without contrast. FINDINGS: Brain: Few scattered punctate acute infarcts of the left lateral cerebellum. No acute intracranial hemorrhage. No mass effect Scattered T2/FLAIR hyperintense foci within the periventricular, deep, and subcortical white matter, which are nonspecific but likely represents the sequela of mild chronic microangiopathic change. Chronic microhemorrhages are not present. Ventricles: Normal for age. Extra-axial spaces: Normal for age. Intracranial Flow Voids: Intact. Orbits: Normal. Paranasal Sinuses and Mehran-mastoid: Clear. Craniocervical Junction: Unremarkable. Osseous Structures: Unremarkable. IMPRESSION: Few scattered punctate acute infarcts of the left lateral cerebellum. No evidence of hemorrhagic conversion or mass effect.
[2025-07-29 12:34] LABS: Triglycerides 122 mg/dL (< 150)
[2025-07-29] MEDS: CLOPIDOGREL BISULFATE 75 MG TAB PO ONE (12:35)
[2025-07-29 12:41] LABS: Cholesterol 221 mg/dL (< 200); HDL Cholesterol 35 mg/dL (40-59)
--- NOTE | 2025-07-29 13:10 | DVHPN2 ---
Changes from previous H/P or p: No Changes Eyes: No Pain, No Vision change, No Conjunctivae inflammation, No Eyelid inflammation, No Other, No Redness ENT: No Ear pain, No Ear discharge, No Nose pain, No Nose discharge, No Nose congestion, No Mouth pain, No Mouth swelling, No Throat pain, No Throat swelling, No Other Cardiovascular: No Chest Pain, No Palpitations, No Orthopnea, No Paroxysmal Noc. Dyspnea, No Edema, No Lt Headedness, No Other Respiratory: No Cough, No Dry, No Shortness of breath, No SOB with excertion, No Wheezing, No Hemoptysis, No Pleuritic Pain, No Sputum, No Other Gastrointestinal: Nausea, Vomiting; No Abdominal Pain, No Diarrhea, No Constipation, No Melena, No Hematochezia, No Other Genitourinary: No Dysuria, No Frequency, No Incontinence, No Hematuria, No Retention, No Other Musculoskeletal: No other, No neck pain, No shoulder pain, No arm pain, No back pain, No hand pain, No leg pain, No foot pain Skin: No Rash, No Lesions, No Jaundice, No Bruising, No Other Objective Vitals Vital Signs Date Time Temp Pulse Resp B/P (MAP) Pulse Ox O2 Delivery O2 Flow Rate FiO2 07/29/25 09:54 67 152/80 (104) 07/29/25 08:54 98.6 16 97 98.6 07/29/25 08:30 Room Air* 0 21 Intake/Output Intake and Output 07/29/25 07:00 Intake Total 480 ml Output Total 1900 ml Balance -1420 ml Intake Oral 480 ml Output Urine Total 1900 ml Medications Current Medications Medications Dose Ordered Sig/Benito Route Start Time Stop Time Status Last Admin Dose Admin Sodium Chloride 10 ml Q8HR IV 07/28/25 14:00 07/29/25 05:20 10 ML Acetaminophen/ Hydrocodone Bitart 1 tab Q4HP PRN PO 07/28/25 11:30 Ondansetron HCl 4 mg Q4HP PRN IV 07/28/25 11:30 Docusate Sodium 100 mg BIDPRN PRN PO 07/28/25 11:30 Acetaminophen 650 mg Q6HP PRN PO 07/28/25 11:30 07/29/25 08:44 650 MG Meclizine HCl 25 mg Q6HPRN PRN PO 07/28/25 11:30 Amlodipine Besylate 10 mg DAILY PO 07/29/25 10:00 07/29/25 08:45 10 MG Aspirin 81 mg DAILY PO 07/29/25 10:00 07/29/25 08:44 81 MG Atorvastatin Calcium 40 mg HS PO 07/28/25 22:00 07/28/25 21:18 40 MG Lisinopril 10 mg DAILY PO 07/29/25 10:00 07/29/25 08:45 10 MG Metoclopramide HCl 10 mg Q6HR IV 07/28/25 18:00 07/29/25 12:34 10 MG Clopidogrel Bisulfate 75 mg DAILY PO 07/30/25 10:00 08/15/25 23:00 Laboratory Results Laboratory Tests 07/29/25 06:55 Chemistry Test 07/29/25 06:55 Albumin 4.2 g/dL (3.2-4.8) Calcium Level 9.0 mg/dL (8.7-10.4) Total Protein 7.1 g/dL (5.7-8.2) Lipid panel Test 07/29/25 06:55 Cholesterol Level 221 mg/dL (< 200) H HDL Cholesterol 35 mg/dL (40-59) L Triglycerides Level 122 mg/dL (< 150) LFT Test 07/29/25 06:55 Alanine Aminotransferase (ALT) 22 U/L (7-40) Alkaline Phosphatase 77 U/L (46-116) Aspartate Amino Transferase (AST) 16 U/L (13-40) Total Bilirubin 0.6 mg/dL (0.2-1.0) Labs and/or images reviewed: Labs reviewed by me, Image(s) reviewed by me Assessment/Plan Assessment/Plan Acute ischemic stroke MRI brain shows Few scattered punctate acute infarcts of the left lateral cerebellum consult for Neurology Dr. Lee aspirin Plavix Dizziness Hypertension: Amlodipine lisinopril Hypercholesterolemia: Lipitor Carotid ultrasound pending Echocardiogram result pending Time spent 46 minutes Advanced care planning time 20 mts Plan discussed with: Patient Date of Service: Jul 29, 2025 Billing Provider: EMILIANO GELLER MD Common Visit Codes: [id number] INP/OBS CARE(HIGH) Secondary Visit Codes: [id number] CARE PLAN 30 MINUTES EMILIANO GELLER MD Jul 29, 2025 13:10
--- NOTE | 2025-07-29 15:07 | DVH ---
INDICATION: Ischemic stroke TECHNIQUE: Real-time ultrasound images of the neck vessels with werner-scale, color and wave Doppler were obtained. COMPARISON: None FINDINGS: There is mild bilateral atherosclerotic plaque. The following peak systolic velocities were recorded in cm/sec: Right internal carotid: 89 Right common carotid: 128 Right external carotid: 128 Right internal/common carotid ratio: 0.7 Left internal carotid: 121 Left common carotid: 141 Left external carotid: 123 Left internal/common carotid ratio: 0.9 Right vertebral artery: Patent with normal antegrade direction of flow. Left vertebral artery: Patent with normal antegrade direction of flow. IMPRESSION: No hemodynamically significant stenosis by velocity criteria.
[2025-07-29] MEDS: IOHEXOL 350 MG/ML 100ML IJ ONE (16:02)
--- NOTE | 2025-07-29 17:09 | DVH ---
CT ANGIO HEAD/Neck INDICATION: CVA TECHNIQUE: Volumetric multi-detector CT images of the head were obtained without administration of IV contrast.. CT angiography along with MIP and MPR images were obtained of the [place] of [place] arteries. CT angiography along with MIP and MPR images were obtained of the cervical carotid and vertebral arteries. All CT scans at this facility use dose modulation, iterative reconstruction, and/or weight based dosing when appropriate to reduce radiation dose to as low as reasonably achievable. 3-D postprocessing was performed on a separate workstation under radiologist supervision. IV CONTRAST: 100 mL of low osmolar intravenous iodinated contrast material was administered. COMPARISON: MRI BRAIN HEAD WO CONTRAST on DOS: 07/29/25 FINDINGS: ANTERIOR CIRCULATION: Distal internal carotid arteries including the petrous, cavernous, and supraclinoid segments are patent bilaterally. Vascular calcifications along the cavernous sinuses. Anterior cerebral arteries including the A1 and A2 segments are patent bilaterally. Anterior communicating artery patent without aneurysm formation. Middle cerebral arteries including the horizontal M1 and sylvian M2 are patent bilaterally. Congenitally absent versus hypoplastic posterior communicating arteries. POSTERIOR CIRCULATION: Posterior cerebral arteries are patent bilaterally. Vertebral arteries are codominant Diminutive distal course of the left distal V4 intracranial segment. The intracranial segments of the vertebral arteries are patent bilaterally. The basilar artery is patent without aneurysm formation. The posterior inferior cerebellar arteries are patent bilaterally. CERVICAL VESSELS: The thoracic aortic arch is patent without evidence of aneurysmal dilatation or dissection. The right common carotid artery, carotid bulb, and cervical segment of the right internal carotid artery are patent The left common carotid artery, carotid bulb, and cervical segment of the left internal carotid artery are patent The cervical segments of the vertebral arteries are patent OTHER: The lung apices are clear. Somewhat limited evaluation secondary to streak artifact. Bilateral palatine tonsilliths. IMPRESSION: 1. No large vessel occlusion, aneurysmal dilatation, or dissection seen within the intracranial vessels. 2. No hemodynamically significant stenosis, aneurysmal dilatation, or dissection seen within the cervical vessels. 3. Diminutive distal course of the left distal V4 intracranial segment.
--- NOTE | 2025-07-29 21:38 | DVHINCON2 ---
Date of service: Jul 29, 2025 Referring Physician Lizeth Reason for Consultation Left-sided weakness History of Present Illness Mr. Roa is a 59 years old right-handed gentleman with a history of hypertension, dyslipidemia, obesity, sleep-related breathing disorder, he came to the [facility] on 07/28/2025 with a chief complaint of dizzy spells. At this time, he is alert and fully oriented, he provided following history I have discussed this case since magazine editor with Melanie, daytime nurse, I have personally reviewed his lab reports, images earlier today, and have given orders Around 3:00 a.m. on 07/28/2025, he had two spells of intense dizziness where everything was spinning around him lasting for 10 seconds, along with blurry vision, nausea, vomiting, when he tried to move, he noticed weakness in the left arm, to less degree left leg, he also had unsteady gait, he had mild headache, slurred speech, but no chest pain, confusion He has never had similar problem before, he denies a history of stroke He snores loud, which had improved after he had lasted 100 Lbs. His sleep is mostly refreshing, but sometimes has excessive daytime sleepiness and fatigue, he has not had sleep study yet Total time spent is more than 75 minutes CBC, 07/29/25: MCV: 78.6 BMP 07/29/2025: Unremarkable Liver function tests, 07/29/2025: Unremarkable HGB A1c, 05/31/2025: 5.7 TG/HDL/LDL/HDL, 07/29/2025: 122/221/166/35 Carotid Doppler, 07/29/2025: No hemodynamically significant stenosis by velocity criteria. CTA head, neck, 07/29/2025: 1. No large vessel occlusion, aneurysmal dilatation, or dissection seen within the intracranial vessels. 2. No hemodynamically significant stenosis, aneurysmal dilatation, or dissection seen within the cervical vessels. 3. Diminutive distal course of the left distal V4 intracranial segment. MRI head, 07/29/2025: Few scattered punctate acute infarcts of the left lateral cerebellum. No evidence of hemorrhagic conversion or mass effect. (I saw punctate stroke in anterior portion of right medulla oblongata, dorsal part of the right medulla oblongata) Past Medical History Hypertension, dyslipidemia, obesity, sleep-related breathing disorder Past Surgical History Foot surgery Family History: FH: cardiovascular disease Family History Hypertension, diabetes, stroke, heart attack Social History He denies a history of tobacco smoking, drug or alcohol abuse Allergies: Coded Allergies: NO KNOWN ALLERGIES (Unverified , 06/17/24) Home Meds Active Scripts Lisinopril (Lisinopril) 5 Mg Tab, 10 MG PO DAILY for 30 Days, #60 TAB Prov:[facility] 06/01/25 Atorvastatin Calcium (ATORVASTATIN CALCIUM) 20 Mg Tab, 40 MG PO HS for 30 Days, #60 TAB [facility]25 Aspirin (Aspirin Low Dose) 81 Mg Tab, 81 MG PO DAILY for 30 Days, #30 TAB [facility] 06/01/25 Amlodipine Besylate (Amlodipine Besylate) 5 Mg Tab, 10 MG PO DAILY for 30 Days, #30 MG [facility] 06/01/25 Current Medications Current Medications Medications (Trade) Dose Ordered Sig/Benito Route PRN Reason Start Time Stop Time Status Last Admin Amlodipine Besylate (Norvasc Tablet) 10 mg DAILY PO 07/29/25 10:00 07/29/25 08:45 Aspirin (Ecotrin Enteric Coated Tablet) 81 mg DAILY PO 07/29/25 10:00 07/29/25 08:44 Atorvastatin Calcium (Lipitor) 40 mg HS PO 07/28/25 22:00 07/28/25 21:18 Lisinopril (Zestril Tablet) 10 mg DAILY PO 07/29/25 10:00 07/29/25 08:45 Clopidogrel Bisulfate (Plavix) 75 mg DAILY PO 07/30/25 10:00 08/15/25 23:00 Review of Systems As above, the other systems are negative Vital Signs Vital Signs Date Time Temp Pulse Resp B/P (MAP) Pulse Ox O2 Delivery O2 Flow Rate FiO2 07/29/25 21:00 97.7 61 18 157/86 (109) 97 97.7 07/29/25 08:30 Room Air* 0 21 Physical Exam GENERAL EXAM: General: the patient is well developed and nourished. No acute distress. HEENT: Normocephalic, neck is supple, no carotid bruits. No mass. RESPIRATORY: Normal respiratory effort with symmetrical lung expansion. Lungs clear to auscultation. CARDIOVASCULAR: Regular rate and rhythm with no murmurs. S1, S2. ABDOMEN: Soft, nontender, normal bowel sound NEUROLOGICAL: MENTAL STATUS: Awake and alert. Oriented to person, place, time and general circumstances. Able to give personal history. SPEECH, LANGUAGE, HIGHER CORTICAL FUNCTION: no aphasia or dysathria. CRANIAL NERVES: #2: Intact visual bundy to confrontation. The optic discs were sharp. #3,4,6: Pupils are equal, round and reactive. EOMs full and conjugate. No nystagmus. #5: Facial sensation intact in all three divisions bilaterally. Mandibular strength intact. #7: Facial muscles symmetrical and strength intact. #8: Hearing grossly normal to voice. #9,10: Uvula and soft palate rise in the midline. Swallow and voice are normal. #11: Trapezius and sternomastoid strength intact bilaterally. #12: Deviated to left side. No fasciculations or atrophy. SENSATION: Sensation to touch and pinprick is normal. MOTOR: Normal tone in the upper and lower extremity. Normal muscle bulk. No fasciculations. No abnormal movements or posturing. Muscle strength of the major groups in the right extremities is 5/5. Muscle strength of the major groups in the left extremities is: Arm 3/5, le/5 REFLEXES: Deep tendon reflexes normal and symmetrical. No pathological reflexes. CEREBELLAR/COORDINATION: Finger to nose is normal in the right arm GAIT/STATION: deferred. Labs/Diagnostic Data Labs Test 07/29/25 06:55 07/28/25 06:04 07/28/25 05:44 Range/Units White Blood Count 7.7 # 4.4-10.8 10^3/uL Red Blood Count 5.31 4.5-5.90 10^6/uL Hemoglobin 13.9 13.5-17.5 g/dL Hematocrit 41.8 41.0-53.0 % Mean Corpuscular Volume 78.6 L 80.0-100.0 fL Mean Corpuscular Hemoglobin 26.1 L 28.0-32.0 pg Mean Corpuscular Hemoglobin Concent 33.2 32.0-36.0 g/dL Red Cell Distribution Width 14.2 11.8-14.3 % Platelet Count 174 140-450 10^3/uL Mean Platelet Volume 9.5 6.9-10.8 fL Neutrophils (%) (Auto) 78.9 37.0-80.0 % Lymphocytes (%) (Auto) 14.5 10.0-50.0 % Monocytes (%) (Auto) 6.3 0.0-12.0 % Eosinophils (%) (Auto) 0.1 0.0-7.0 % Basophils (%) (Auto) 0.2 0.0-2.0 % Neutrophils # (Auto) 6.1 1.6-8.6 10 ^3/uL Lymphocytes # (Auto) 1.1 0.4-5.4 10 ^3/uL Monocytes # (Auto) 0.5 0-1.3 10 ^3/uL Eosinophils # (Auto) 0 0-0.8 10 ^3/uL Basophils # (Auto) 0 0-0.2 10 ^3/uL Nucleated Red Blood Cells 0.0 % Sodium Level 142 136-145 mmol/L Potassium Level 3.9 3.5-5.1 mmol/L Chloride Level 108 H 98-107 mmol/L Carbon Dioxide Level 23 20-31 mmol/L Anion Gap 11 5-15 Blood Urea Nitrogen 8 L 9-23 mg/dL Creatinine 0.90 0.700-1.30 mg/dL Glomerular Filtration Rate Calc 97 >90 mL/min BUN/Creatinine Ratio 8.9 L 10.0-20.0 Serum Glucose 117 H 74-106 mg/dL Calcium Level 9.0 8.7-10.4 mg/dL Total Bilirubin 0.6 0.2-1.0 mg/dL Aspartate Amino Transferase (AST) 16 13-40 U/L Alanine Aminotransferase (ALT) 22 7-40 U/L Alkaline Phosphatase 77 46-116 U/L Total Protein 7.1 5.7-8.2 g/dL Albumin 4.2 3.2-4.8 g/dL Triglycerides Level 122 < 150 mg/dL Cholesterol Level 221 H < 200 mg/dL LDL Cholesterol 166 H < 100 mg/dL HDL Cholesterol 35 L 40-59 mg/dL Troponin I High Sensitivity 5 </=54 ng/L POC Glucose 157 H 70-106 mg/dl Assessment Acute vertigo, Acute gait disturbance Left tongue weakness Left hemiparesis 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 Although this document has been carefully reviewed, there may still be some phonetic and typographical errors. These areas are purely typographical due to imperfections of the software programs, and do not reflect any compromise in the patient's medical care. Plan discussed with: Patient, Other CHIARA VICK MD Jul 29, 2025 21:38
[2025-07-29] MEDS: ONDANSETRON HCL 4 MG/2 ML VIAL IV PRN (22:18)
[2025-07-30] VITALS (15 sets, daily range): BP systolic 136–159; BP diastolic 79–97; PULSE 55–99; RESP 17–18; TEMP 96.9–97.6; O2SAT 95–100
--- NOTE | 2025-07-30 10:43 | DVHPN2 ---
Changes from previous H/P or p: No Changes Eyes: No Pain, No Vision change, No Conjunctivae inflammation, No Eyelid inflammation, No Other, No Redness ENT: No Ear pain, No Ear discharge, No Nose pain, No Nose discharge, No Nose congestion, No Mouth pain, No Mouth swelling, No Throat pain, No Throat swelling, No Other Cardiovascular: No Chest Pain, No Palpitations, No Orthopnea, No Paroxysmal Noc. Dyspnea, No Edema, No Lt Headedness, No Other Respiratory: No Cough, No Dry, No Shortness of breath, No SOB with excertion, No Wheezing, No Hemoptysis, No Pleuritic Pain, No Sputum, No Other Gastrointestinal: Nausea, Vomiting; No Abdominal Pain, No Diarrhea, No Constipation, No Melena, No Hematochezia, No Other Genitourinary: No Dysuria, No Frequency, No Incontinence, No Hematuria, No Retention, No Other Musculoskeletal: No other, No neck pain, No shoulder pain, No arm pain, No back pain, No hand pain, No leg pain, No foot pain Skin: No Rash, No Lesions, No Jaundice, No Bruising, No Other Objective Vitals Vital Signs Date Time Temp Pulse Resp B/P (MAP) Pulse Ox O2 Delivery O2 Flow Rate FiO2 07/30/25 09:00 97.2 57 18 145/79 (101) 100 97.2 07/30/25 08:00 Room Air* 0 21 Intake/Output Intake and Output 07/30/25 07:00 Intake Total 600 ml Output Total 1550 ml Balance -950 ml Intake Oral 600 ml Output Urine Total 1550 ml # Voids 6 Medications Current Medications Medications Dose Ordered Sig/Benito Route Start Time Stop Time Status Last Admin Dose Admin Sodium Chloride 10 ml Q8HR IV 07/28/25 14:00 07/30/25 05:55 10 ML Acetaminophen/ Hydrocodone Bitart 1 tab Q4HP PRN PO 07/28/25 11:30 Ondansetron HCl 4 mg Q4HP PRN IV 07/28/25 11:30 07/29/25 22:18 4 MG Docusate Sodium 100 mg BIDPRN PRN PO 07/28/25 11:30 Acetaminophen 650 mg Q6HP PRN PO 07/28/25 11:30 07/29/25 08:44 650 MG Meclizine HCl 25 mg Q6HPRN PRN PO 07/28/25 11:30 Amlodipine Besylate 10 mg DAILY PO 07/29/25 10:00 07/29/25 08:45 10 MG Aspirin 81 mg DAILY PO 07/29/25 10:00 07/29/25 08:44 81 MG Atorvastatin Calcium 40 mg HS PO 07/28/25 22:00 07/28/25 21:18 40 MG Lisinopril 10 mg DAILY PO 07/29/25 10:00 07/29/25 08:45 10 MG Metoclopramide HCl 10 mg Q6HR IV 07/28/25 18:00 07/29/25 12:34 10 MG Clopidogrel Bisulfate 75 mg DAILY PO 07/30/25 10:00 08/15/25 23:00 Laboratory Results Laboratory Tests 07/29/25 06:55 Labs and/or images reviewed: Labs reviewed by me, Image(s) reviewed by me Assessment/Plan Assessment/Plan Acute ischemic stroke MRI brain shows Few scattered punctate acute infarcts of the left lateral cerebellum consult for Neurology Dr. Lee appreciated placed on aspirin Plavix Dizziness Hypertension: Amlodipine lisinopril Hypercholesterolemia: Lipitor Carotid ultrasound negative Head and neck CT negative Echocardiogram 05/31/2025 normal Time spent 46 minutes Advanced care planning time 20 mts Physical therapy ordered Patient requesting to be discharged home today CYNTHIA [place] present at bedside Plan discussed with: Patient My Orders Orders - EMILIANO GELLER MD Procedure Category Date Status Time Carotid Duplx W Color US 07/29/25 Resulted DOP 13:03 Communication Order ORDERS 07/29/25 Transmitted 13:[address] 07/29/25 Logged 13:18 Pt Request For Service PT 07/29/25 Logged 13:18 Npo (Nothing By DIET 07/29/25 Transmitted Mouth) Diet Dinner Date of Service: Jul 30, 2025 Billing Provider: EMILIANO GELLER MD Common Visit Codes: [id number] INP/OBS CARE(HIGH) EMILIANO GELLER MD Jul 30, 2025 10:43
[2025-07-30] MEDS ORDERED: CLOP75TA28 PO (10:46)
[2025-07-30] MEDS ORDERED: ATOR-507 PO (10:46)
[2025-07-30] MEDS ORDERED: AMLO1TAB23 PO (10:46)
[2025-07-30] MEDS ORDERED: ASPI1TAB19 PO (10:46)
[2025-07-30] MEDS: CLOPIDOGREL BISULFATE 75 MG TAB PO SCH (10:49)
--- NOTE | 2025-07-30 10:51 | DVHDS2 ---
Discharge Summary Date of Admission Jul 28, 2025 at 11:20 Date of Discharge: Jul 30, 2025 Admitting Diagnosis Dizziness Wounds: None Labs/Diagnostic Data: Laboratory Results Test 07/29/25 06:55 07/28/25 06:04 07/28/25 05:44 White Blood Count 7.7 10^3/uL (4.4-10.8) Red Blood Count 5.31 10^6/uL (4.5-5.90) Hemoglobin 13.9 g/dL (13.5-17.5) Hematocrit 41.8 % (41.0-53.0) Mean Corpuscular Volume 78.6 fL (80.0-100.0) Mean Corpuscular Hemoglobin 26.1 pg (28.0-32.0) Mean Corpuscular Hemoglobin Concent 33.2 g/dL (32.0-36.0) Red Cell Distribution Width 14.2 % (11.8-14.3) Platelet Count 174 10^3/uL (140-450) Mean Platelet Volume 9.5 fL (6.9-10.8) Neutrophils (%) (Auto) 78.9 % (37.0-80.0) Lymphocytes (%) (Auto) 14.5 % (10.0-50.0) Monocytes (%) (Auto) 6.3 % (0.0-12.0) Eosinophils (%) (Auto) 0.1 % (0.0-7.0) Basophils (%) (Auto) 0.2 % (0.0-2.0) Neutrophils # (Auto) 6.1 10 ^3/uL (1.6-8.6) Lymphocytes # (Auto) 1.1 10 ^3/uL (0.4-5.4) Monocytes # (Auto) 0.5 10 ^3/uL (0-1.3) Eosinophils # (Auto) 0 10 ^3/uL (0-0.8) Basophils # (Auto) 0 10 ^3/uL (0-0.2) Nucleated Red Blood Cells 0.0 % Sodium Level 142 mmol/L (136-145) Potassium Level 3.9 mmol/L (3.5-5.1) Chloride Level 108 mmol/L (98-107) Carbon Dioxide Level 23 mmol/L (20-31) Anion Gap 11 (5-15) Blood Urea Nitrogen 8 mg/dL (9-23) Creatinine 0.90 mg/dL (0.700-1.30) Glomerular Filtration Rate Calc 97 mL/min (>90) BUN/Creatinine Ratio 8.9 (10.0-20.0) Serum Glucose 117 mg/dL (74-106) Calcium Level 9.0 mg/dL (8.7-10.4) Total Bilirubin 0.6 mg/dL (0.2-1.0) Aspartate Amino Transferase (AST) 16 U/L (13-40) Alanine Aminotransferase (ALT) 22 U/L (7-40) Alkaline Phosphatase 77 U/L (46-116) Total Protein 7.1 g/dL (5.7-8.2) Albumin 4.2 g/dL (3.2-4.8) Triglycerides Level 122 mg/dL (< 150) Cholesterol Level 221 mg/dL (< 200) LDL Cholesterol 166 mg/dL (< 100) HDL Cholesterol 35 mg/dL (40-59) Troponin I High Sensitivity 5 ng/L (</=54) POC Glucose 157 mg/dl (70-106) Other Laboratory Tests 07/29/25 06:55 Brief Hx & Hospital Course: 59-year-old male with a history of hypertension hypercholesterolemia came in for dizziness MRI brain showed acute infarct of the left lateral cerebellum. Diagnosed with a acute ischemic stroke. Seen by neurologist Dr. Lee placed on aspirin Plavix amlodipine Lipitor carotid ultrasound negative head and neck CT is negative echocardiogram 06/03/2025 normal. Physical therapy ordered patient feels better and wants to be discharged home Medications transmitted to the pharmacy Consults/Reason for consult Neurology Dr. Lee Operations or Procedures CT head MRI brain Carotid ultrasound Condition at Discharge: Fair Final Diagnosis/Problems List Acute ischemic stroke MRI brain shows Few scattered punctate acute infarcts of the left lateral cerebellum consult for Neurology Dr. Lee appreciated placed on aspirin Plavix Dizziness Hypertension: Amlodipine lisinopril Hypercholesterolemia: Lipitor Carotid ultrasound negative Head and neck CT negative Echocardiogram 05/31/2025 porfirio Discharge Disposition: Home Discharge Instruct/Medications Diet: Cardiac 2g Na,low cholest Activity: Light activity Follow Up/Referral: Follow up with the primary Dr in one week Follow up with the Neurology Dr. Kwok in two weeks Medications: Lipitor Aspirin Plavix Amlodipine Transmitted to [facility] pharmacy Scheduled Amlodipine Besylate (Amlodipine Besylate), 10 MG PO DAILY Amlodipine Besylate (Amlodipine Besylate), 1 TAB PO DAILY Aspirin (Aspirin Low Dose), 81 MG PO DAILY Aspirin (Aspirin), 81 MG PO DAILY Atorvastatin Calcium (Atorvastatin Calcium), 40 MG PO HS Atorvastatin Calcium (Lipitor), 1 TAB PO QPM Clopidogrel Bisulfate (Plavix), 1 TAB PO DAILY Lisinopril (Lisinopril), 10 MG PO DAILY 39 (Time taken for discharge summary 39 minutes) Discharge Statement: "Patient was advised to return to the ER or call 911 if any headaches, dizziness, shortness of breath, chest pain, abdominal pain, bleeding, fevers, or worsening of medical condition. Patient was counseled about treatment plan, medications, possible side effects, patientverbalized understanding. All questions were answered to the best of my ability. This discharge took greater then 30 minutes in planning, reviewing documentation, counseling the patient, and discussing with other team members." ASSESSMENT ASSESSMENT Hospital Course Improved Assessment Acute ischemic stroke MRI brain shows Few scattered punctate acute infarcts of the left lateral cerebellum consult for Neurology Dr. Lee appreciated placed on aspirin Plavix Dizziness Hypertension: Amlodipine lisinopril Hypercholesterolemia: Lipitor Carotid ultrasound negative Head and neck CT negative Echocardiogram 05/31/2025 porfirio Date of Service: Jul 30, 2025 Billing Provider: EMILIANO GELLER MD Common Visit Codes: [id number] DISCH DAY >30min EMILIANO GELLER MD Jul 30, 2025 10:51
[2025-07-30 20:12] LABS: Cannabinoid Screen, Urine Pos (NEGATIVE)
[2025-07-30 20:17] LABS: Amphetamine Screen, Urine Neg (NEGATIVE); Barbiturate Scree,Urine Neg (NEGATIVE); Benzodiazephine Screen, Urine Neg (NEGATIVE); Cocaine Screen, Urine Neg (NEGATIVE); Opiate Scree,Urine Neg (NEGATIVE); Phencyclidine Screen, Urine Neg (NEGATIVE)
--- NOTE | 2025-07-30 20:36 | DVHPN2 ---
Progress Note - Dictate Date Seen: Jul 30, 2025 Medical Necessity Reason Pt with a Central, PICC or Fol: No Subjective Mr. Roa is a 59 years old right-handed gentleman with a history of hypertension, dyslipidemia, obesity, sleep-related breathing disorder, he came to the [facility] on 07/28/2025 with a chief complaint of dizzy spells. I have seen and examined the patient, talked to his nurse, he reports doing fine, he sleeps better with BiPAP, no new complaints UDS, 07/30/2025: Cannabinoids CBC, 07/29/25: MCV: 78.6 BMP 07/29/2025: Unremarkable Liver function tests, 07/29/2025: Unremarkable HGB A1c, 05/31/2025: 5.7 TG/HDL/LDL/HDL, 07/29/2025: 122/221/166/35 Echocardiogram, 05/31/2025: lvef 60% moderate LVH concentric normal RV function normal atria no severe valve abnormalities noted Carotid Doppler, 07/29/2025: No hemodynamically significant stenosis by velocity criteria. CTA head, neck, 07/29/2025: 1. No large vessel occlusion, aneurysmal dilatation, or dissection seen within the intracranial vessels. 2. No hemodynamically significant stenosis, aneurysmal dilatation, or dissection seen within the cervical vessels. 3. Diminutive distal course of the left distal V4 intracranial segment. MRI head, 07/29/2025: Few scattered punctate acute infarcts of the left lateral cerebellum. No evidence of hemorrhagic conversion or mass effect. (I saw punctate stroke in anterior portion of right medulla oblongata, dorsal part of the right medulla oblongata) vital signs Vital Sign Date Time Temp Pulse Resp B/P (MAP) Pulse Ox O2 Delivery O2 Flow Rate FiO2 07/30/25 16:41 97.4 71 18 136/97 (110) 99 97.4 07/30/25 09:40 Facial BiPAP Mask 30 07/30/25 08:00 0 Total Intake and Output 07/29/25 07/29/25 07/30/25 15:00 23:00 07:00 Intake Total 600 ml 0 ml Output Total 900 ml 650 ml Balance -900 ml 600 ml -650 ml medications Current Medications Medications Dose Ordered Sig/Benito Route Start Time Stop Time Status Last Admin Dose Admin Sodium Chloride 10 ml Q8HR IV 07/28/25 14:00 07/30/25 20:21 10 ML Acetaminophen/ Hydrocodone Bitart 1 tab Q4HP PRN PO 07/28/25 11:30 Ondansetron HCl 4 mg Q4HP PRN IV 07/28/25 11:30 07/29/25 22:18 4 MG Docusate Sodium 100 mg BIDPRN PRN PO 07/28/25 11:30 Acetaminophen 650 mg Q6HP PRN PO 07/28/25 11:30 07/29/25 08:44 650 MG Meclizine HCl 25 mg Q6HPRN PRN PO 07/28/25 11:30 Amlodipine Besylate 10 mg DAILY PO 07/29/25 10:00 07/30/25 10:49 10 MG Aspirin 81 mg DAILY PO 07/29/25 10:00 07/30/25 10:48 81 MG Atorvastatin Calcium 40 mg HS PO 07/28/25 22:00 07/30/25 20:19 40 MG Lisinopril 10 mg DAILY PO 07/29/25 10:00 07/30/25 10:49 10 MG Metoclopramide HCl 10 mg Q6HR IV 07/28/25 18:00 07/30/25 18:38 10 MG Clopidogrel Bisulfate 75 mg DAILY PO 07/30/25 10:00 08/15/25 23:00 07/30/25 10:49 75 MG objective General: the patient is well developed and nourished. No acute distress. MENTAL STATUS: Awake and alert. Oriented to person, place, time and general circumstances. Able to give personal history. SPEECH, LANGUAGE, HIGHER CORTICAL FUNCTION: no aphasia or dysathria. CRANIAL NERVES: Pupils are equal, round and reactive. EOMs full and conjugate. No nystagmus. Facial sensation intact in all three divisions bilaterally. Mandibular strength intact. Facial muscles symmetrical and strength intact. SENSATION: Sensation to touch and pinprick is normal. MOTOR: Normal tone in the upper and lower extremity. Normal muscle bulk. No fasciculations. No abnormal movements or posturing. Muscle strength of the major groups in the right extremities is 5/5. Muscle strength of the major groups in the left extremities is: Arm 3/5, le/5 REFLEXES: Deep tendon reflexes normal and symmetrical. No pathological reflexes. 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 Although this document has been carefully reviewed, there may still be some phonetic and typographical errors. These areas are purely typographical due to imperfections of the software programs, and do not reflect any compromise in the patient's medical care. Prognosis poor Plan discussed with: Patient, Other Total Time (mins): 35 CHIARA VICK MD Jul 30, 2025 20:36
[2025-07-31] VITALS (9 sets, daily range): BP systolic 125–154; BP diastolic 68–106; PULSE 58–94; RESP 16–19; TEMP 97.5–98.3; O2SAT 95–99
--- NOTE | 2025-07-31 10:23 | DVHPN2 ---
Reviewed: Care Plan Changes from previous H/P or p: No Changes Eyes: No Pain, No Vision change, No Conjunctivae inflammation, No Eyelid inflammation, No Other, No Redness ENT: No Ear pain, No Ear discharge, No Nose pain, No Nose discharge, No Nose congestion, No Mouth pain, No Mouth swelling, No Throat pain, No Throat swelling, No Other Cardiovascular: No Chest Pain, No Palpitations, No Orthopnea, No Paroxysmal Noc. Dyspnea, No Edema, No Lt Headedness, No Other Respiratory: No Cough, No Dry, No Shortness of breath, No SOB with excertion, No Wheezing, No Hemoptysis, No Pleuritic Pain, No Sputum, No Other Gastrointestinal: Nausea, Vomiting; No Abdominal Pain, No Diarrhea, No Constipation, No Melena, No Hematochezia, No Other Genitourinary: No Dysuria, No Frequency, No Incontinence, No Hematuria, No Retention, No Other Musculoskeletal: No other, No neck pain, No shoulder pain, No arm pain, No back pain, No hand pain, No leg pain, No foot pain Skin: No Rash, No Lesions, No Jaundice, No Bruising, No Other Objective Vitals Vital Signs Date Time Temp Pulse Resp B/P (MAP) Pulse Ox O2 Delivery O2 Flow Rate FiO2 07/31/25 08:46 99 Room Air* 0 21 07/31/25 08:37 97.7 75 19 143/85 (104) 97.7 Intake/Output Intake and Output 07/31/25 07:00 Intake Total 1000 ml Output Total 520 ml Balance 480 ml Intake Oral 1000 ml Output Urine Total 520 ml # Voids 2 Medications Current Medications Medications Dose Ordered Sig/Benito Route Start Time Stop Time Status Last Admin Dose Admin Sodium Chloride 10 ml Q8HR IV 07/28/25 14:00 07/31/25 06:04 10 ML Acetaminophen/ Hydrocodone Bitart 1 tab Q4HP PRN PO 07/28/25 11:30 Ondansetron HCl 4 mg Q4HP PRN IV 07/28/25 11:30 07/29/25 22:18 4 MG Docusate Sodium 100 mg BIDPRN PRN PO 07/28/25 11:30 Acetaminophen 650 mg Q6HP PRN PO 07/28/25 11:30 07/31/25 06:01 650 MG Meclizine HCl 25 mg Q6HPRN PRN PO 07/28/25 11:30 Amlodipine Besylate 10 mg DAILY PO 07/29/25 10:00 07/30/25 10:49 10 MG Aspirin 81 mg DAILY PO 07/29/25 10:00 07/30/25 10:48 81 MG Atorvastatin Calcium 40 mg HS PO 07/28/25 22:00 07/30/25 20:19 40 MG Lisinopril 10 mg DAILY PO 07/29/25 10:00 07/30/25 10:49 10 MG Metoclopramide HCl 10 mg Q6HR IV 07/28/25 18:00 07/31/25 05:53 10 MG Clopidogrel Bisulfate 75 mg DAILY PO 07/30/25 10:00 08/15/25 23:00 07/30/25 10:49 75 MG Laboratory Results Laboratory Tests 07/29/25 06:55 Labs and/or images reviewed: Labs reviewed by me, Image(s) reviewed by me Assessment/Plan Assessment/Plan Acute ischemic stroke MRI brain shows Few scattered punctate acute infarcts of the left lateral cerebellum consult for Neurology Dr. Lee appreciated placed on aspirin Plavix Dizziness Hypertension: Amlodipine lisinopril Hypercholesterolemia: Lipitor Carotid ultrasound negative Head and neck CT negative Echocardiogram 05/31/2025 normal Time spent 46 minutes Advanced care planning time 20 mts Physical therapy ordered Patient was discharged home on 07/30/2025 at his request Patient has unsteady gait and physical therapy recommended group home facility placement and patient is willing to go to SNF Service service consult placed CYNTHIA Ng present at bedside Plan discussed with: Patient My Orders Orders - EMILIANO GELLER MD Procedure Category Date Status Time Cardiac DIET 07/30/25 Transmitted Diet-2gna,Lofat,Lochol Lunch * 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
[2025-08-01] VITALS (10 sets, daily range): BP systolic 130–147; BP diastolic 69–88; PULSE 61–95; RESP 16–20; TEMP 98–99.6; O2SAT 95–100
[2025-08-01] MEDS: MAALOX PLUS or MAALOX 30 ML PO ONE (10:27)
--- NOTE | 2025-08-01 20:33 | DVHPN2 ---
Progress Note - Dictate Date Seen: Aug 01, 2025 Medical Necessity Reason Pt with a Central, PICC or Fol: No Subjective Mr. Roa is a 59 years old right-handed gentleman with a history of hypertension, dyslipidemia, obesity, sleep-related breathing disorder, he came to the [facility] on 07/28/2025 with a chief complaint of dizzy spells. I have seen and examined the patient, talked to his nurse, he reports doing fine, he sleeps better with BiPAP, no new complaints Per my observation, I do not see improvement in the left upper extremity weakness UDS, 07/30/2025: Cannabinoids CBC, 07/29/25: MCV: 78.6 BMP 07/29/2025: Unremarkable Liver function tests, 07/29/2025: Unremarkable HGB A1c, 05/31/2025: 5.7 TG/HDL/LDL/HDL, 07/29/2025: 122/221/166/35 Echocardiogram, 05/31/2025: lvef 60% moderate LVH concentric normal RV function normal atria no severe valve abnormalities noted Carotid Doppler, 07/29/2025: No hemodynamically significant stenosis by velocity criteria. CTA head, neck, 07/29/2025: 1. No large vessel occlusion, aneurysmal dilatation, or dissection seen within the intracranial vessels. 2. No hemodynamically significant stenosis, aneurysmal dilatation, or dissection seen within the cervical vessels. 3. Diminutive distal course of the left distal V4 intracranial segment. MRI head, 07/29/2025: Few scattered punctate acute infarcts of the left lateral cerebellum. No evidence of hemorrhagic conversion or mass effect. (I saw punctate stroke in anterior portion of right medulla oblongata, dorsal part of the right medulla oblongata) vital signs Vital Sign Date Time Temp Pulse Resp B/P (MAP) Pulse Ox O2 Delivery O2 Flow Rate FiO2 08/01/25 16:47 98.0 61 17 135/69 (91) 95 98.0 08/01/25 08:05 Room Air* 0 21 Total Intake and Output 07/31/25 07/31/25 08/01/25 15:00 23:00 07:00 Intake Total 400 ml 400 ml Balance 400 ml 400 ml medications Current Medications Medications Dose Ordered Sig/Benito Route Start Time Stop Time Status Last Admin Dose Admin Sodium Chloride 10 ml Q8HR IV 07/28/25 14:00 12/21/25 14:00 10 ML Acetaminophen/ Hydrocodone Bitart 1 tab Q4HP PRN PO 07/28/25 11:30 Ondansetron HCl 4 mg Q4HP PRN IV 07/28/25 11:30 07/29/25 22:18 4 MG Docusate Sodium 100 mg BIDPRN PRN PO 07/28/25 11:30 Acetaminophen 650 mg Q6HP PRN PO 07/28/25 11:30 07/31/25 06:01 650 MG Meclizine HCl 25 mg Q6HPRN PRN PO 07/28/25 11:30 Amlodipine Besylate 10 mg DAILY PO 07/29/25 10:00 08/01/25 09:47 10 MG Aspirin 81 mg DAILY PO 07/29/25 10:00 08/01/25 09:46 81 MG Atorvastatin Calcium 40 mg HS PO 07/28/25 22:00 07/31/25 21:12 40 MG Lisinopril 10 mg DAILY PO 07/29/25 10:00 08/01/25 09:47 10 MG Metoclopramide HCl 10 mg Q6HR IV 07/28/25 18:00 08/01/25 17:56 10 MG Clopidogrel Bisulfate 75 mg DAILY PO 07/30/25 10:00 08/15/25 23:00 08/01/25 09:47 75 MG objective General: the patient is well developed and nourished. No acute distress. MENTAL STATUS: Awake and alert. Oriented to person, place, time and general circumstances. Able to give personal history. SPEECH, LANGUAGE, HIGHER CORTICAL FUNCTION: no aphasia or dysathria. CRANIAL NERVES: Pupils are equal, round and reactive. EOMs full and conjugate. No nystagmus. Facial sensation intact in all three divisions bilaterally. Mandibular strength intact. Facial muscles symmetrical and strength intact. SENSATION: Sensation to touch and pinprick is normal. MOTOR: Normal tone in the upper and lower extremity. Normal muscle bulk. No fasciculations. No abnormal movements or posturing. Muscle strength of the major groups in the right extremities is 5/5. Muscle strength of the major groups in the left extremities is: Arm 3/5, le/5 REFLEXES: Deep tendon reflexes normal and symmetrical. No pathological reflexes. CEREBELLAR/COORDINATION: Finger to nose is normal in the right arm GAIT/STATION: deferred laboratory and microbiology Laboratory Tests 07/29/25 06:55 Test 07/29/25 06:55 Range/Units Serum Glucose 117 H 74-106 mg/dL Problem List Acute vertigo, Acute gait disturbance Left tongue weakness Left hemiparesis Acute left cerebellum strokes Acute oblique and strokes Obesity Sleep-related breathing disorder Assessment/Plan Monitoring Supportive treatment Telemetry Aspirin 81 mg daily Plavix 75 mg daily for 21 days Lipitor 40 mg daily Blood pressure control APAP in the hospital He has been caused to try to elevated bed head for his sleep related breathing disorder Follow up with his doctors LUDY on discharge Further address his sleep-related breathing disorder as outpatient Stroke risk facts discussed Lifestyle discussed Weight control This medical document was created using an electronic medical record system with [employer] dictation system. Although this document has been carefully reviewed, there may still be some phonetic and typographical errors. These areas are purely typographical due to imperfections of the software programs, and do not reflect any compromise in the patient's medical care. Prognosis poor Plan discussed with: Patient, Other CHIARA VICK MD Aug 01, 2025 20:33
[2025-08-02] VITALS (9 sets, daily range): BP systolic 134–161; BP diastolic 73–93; PULSE 60–87; RESP 16–19; TEMP 97.6–98.5; O2SAT 96–99
[2025-08-02 08:10] LABS: COVID19 ANTIGEN SOFIA FIA NEGATIVE (NEGATIVE)
--- NOTE | 2025-08-02 11:51 | DVHPN2 ---
Reviewed: Care Plan Changes from previous H/P or p: No Changes Eyes: No Pain, No Vision change, No Conjunctivae inflammation, No Eyelid inflammation, No Other, No Redness ENT: No Ear pain, No Ear discharge, No Nose pain, No Nose discharge, No Nose congestion, No Mouth pain, No Mouth swelling, No Throat pain, No Throat swelling, No Other Cardiovascular: No Chest Pain, No Palpitations, No Orthopnea, No Paroxysmal Noc. Dyspnea, No Edema, No Lt Headedness, No Other Respiratory: No Cough, No Dry, No Shortness of breath, No SOB with excertion, No Wheezing, No Hemoptysis, No Pleuritic Pain, No Sputum, No Other Gastrointestinal: Nausea, Vomiting; No Abdominal Pain, No Diarrhea, No Constipation, No Melena, No Hematochezia, No Other Genitourinary: No Dysuria, No Frequency, No Incontinence, No Hematuria, No Retention, No Other Musculoskeletal: No other, No neck pain, No shoulder pain, No arm pain, No back pain, No hand pain, No leg pain, No foot pain Skin: No Rash, No Lesions, No Jaundice, No Bruising, No Other Objective Vitals Vital Signs Date Time Temp Pulse Resp B/P (MAP) Pulse Ox O2 Delivery O2 Flow Rate FiO2 08/02/25 09:53 150/93 08/02/25 09:00 98.2 60 16 99 98.2 08/02/25 01:42 0.0 21 08/01/25 20:00 Room Air* Intake/Output Intake and Output 08/02/25 07:00 Intake Total 750 ml Balance 750 ml Intake Oral 750 ml # Voids 4 Medications Current Medications Medications Dose Ordered Sig/Benito Route Start Time Stop Time Status Last Admin Dose Admin Sodium Chloride 10 ml Q8HR IV 07/28/25 14:00 08/02/25 05:41 10 ML Acetaminophen/ Hydrocodone Bitart 1 tab Q4HP PRN PO 07/28/25 11:30 Ondansetron HCl 4 mg Q4HP PRN IV 07/28/25 11:30 07/29/25 22:18 4 MG Docusate Sodium 100 mg BIDPRN PRN PO 07/28/25 11:30 Acetaminophen 650 mg Q6HP PRN PO 07/28/25 11:30 07/31/25 06:01 650 MG Meclizine HCl 25 mg Q6HPRN PRN PO 07/28/25 11:30 Amlodipine Besylate 10 mg DAILY PO 07/29/25 10:00 08/02/25 09:53 10 MG Aspirin 81 mg DAILY PO 07/29/25 10:00 08/02/25 09:52 81 MG Atorvastatin Calcium 40 mg HS PO 07/28/25 22:00 08/01/25 22:12 40 MG Lisinopril 10 mg DAILY PO 07/29/25 10:00 08/02/25 09:53 10 MG Metoclopramide HCl 10 mg Q6HR IV 07/28/25 18:00 08/02/25 05:41 10 MG Clopidogrel Bisulfate 75 mg DAILY PO 07/30/25 10:00 08/15/25 23:00 08/02/25 09:53 75 MG Laboratory Results Laboratory Tests 07/29/25 06:55 Labs and/or images reviewed: Labs reviewed by me, Image(s) reviewed by me Assessment/Plan Assessment/Plan Acute ischemic stroke MRI brain shows Few scattered punctate acute infarcts of the left lateral cerebellum consult for Neurology Dr. Lee appreciated placed on aspirin Plavix Dizziness Hypertension: Amlodipine lisinopril Hypercholesterolemia: Lipitor Carotid ultrasound negative Head and neck CT negative Echocardiogram 05/31/2025 normal Time spent 46 minutes Advanced care planning time 20 mts Physical therapy ordered Patient was discharged home on 07/30/2025 at his request Patient has unsteady gait and physical therapy recommended custodial facility placement and patient is willing to go to SNF Service service consult placed Patient awaiting transportation to the custodial facility Plan discussed with: Patient My Orders Orders - EMILIANO GELLER MD Procedure Category Date Status Time * 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
[2025-08-03] VITALS (8 sets, daily range): BP systolic 129–168; BP diastolic 78–98; PULSE 59–86; RESP 16–18; TEMP 97.5–98.5; O2SAT 95–99
--- NOTE | 2025-08-03 12:59 | DVHPN2 ---
Reviewed: Care Plan Changes from previous H/P or p: No Changes Eyes: No Pain, No Vision change, No Conjunctivae inflammation, No Eyelid inflammation, No Other, No Redness ENT: No Ear pain, No Ear discharge, No Nose pain, No Nose discharge, No Nose congestion, No Mouth pain, No Mouth swelling, No Throat pain, No Throat swelling, No Other Cardiovascular: No Chest Pain, No Palpitations, No Orthopnea, No Paroxysmal Noc. Dyspnea, No Edema, No Lt Headedness, No Other Respiratory: No Cough, No Dry, No Shortness of breath, No SOB with excertion, No Wheezing, No Hemoptysis, No Pleuritic Pain, No Sputum, No Other Gastrointestinal: Nausea, Vomiting; No Abdominal Pain, No Diarrhea, No Constipation, No Melena, No Hematochezia, No Other Genitourinary: No Dysuria, No Frequency, No Incontinence, No Hematuria, No Retention, No Other Musculoskeletal: No other, No neck pain, No shoulder pain, No arm pain, No back pain, No hand pain, No leg pain, No foot pain Skin: No Rash, No Lesions, No Jaundice, No Bruising, No Other Objective Vitals Vital Signs Date Time Temp Pulse Resp B/P (MAP) Pulse Ox O2 Delivery O2 Flow Rate FiO2 08/03/25 09:21 143/109 08/03/25 09:00 98.0 59 18 97 98.0 08/03/25 08:00 Room Air* 0 21 Intake/Output Intake and Output 08/03/25 07:00 Intake Total 1360 ml Balance 1360 ml Intake Oral 1360 ml # Voids 4 Medications Current Medications Medications Dose Ordered Sig/Benito Route Start Time Stop Time Status Last Admin Dose Admin Sodium Chloride 10 ml Q8HR IV 07/28/25 14:00 08/03/25 11:31 10 ML Acetaminophen/ Hydrocodone Bitart 1 tab Q4HP PRN PO 07/28/25 11:30 Ondansetron HCl 4 mg Q4HP PRN IV 07/28/25 11:30 07/29/25 22:18 4 MG Docusate Sodium 100 mg BIDPRN PRN PO 07/28/25 11:30 Acetaminophen 650 mg Q6HP PRN PO 07/28/25 11:30 07/31/25 06:01 650 MG Meclizine HCl 25 mg Q6HPRN PRN PO 07/28/25 11:30 Amlodipine Besylate 10 mg DAILY PO 07/29/25 10:00 08/03/25 09:21 10 MG Aspirin 81 mg DAILY PO 07/29/25 10:00 08/03/25 09:20 81 MG Atorvastatin Calcium 40 mg HS PO 07/28/25 22:00 08/02/25 22:24 40 MG Lisinopril 10 mg DAILY PO 07/29/25 10:00 08/03/25 09:21 10 MG Metoclopramide HCl 10 mg Q6HR IV 07/28/25 18:00 08/03/25 11:30 10 MG Clopidogrel Bisulfate 75 mg DAILY PO 07/30/25 10:00 08/15/25 23:00 08/03/25 09:20 75 MG Laboratory Results Laboratory Tests 07/29/25 06:55 Labs and/or images reviewed: Labs reviewed by me, Image(s) reviewed by me Assessment/Plan Assessment/Plan Acute ischemic stroke MRI brain shows Few scattered punctate acute infarcts of the left lateral cerebellum consult for Neurology Dr. Lee appreciated placed on aspirin Plavix Dizziness Hypertension: Amlodipine lisinopril Hypercholesterolemia: Lipitor Carotid ultrasound negative Head and neck CT negative Echocardiogram 05/31/2025 normal Time spent 46 minutes Advanced care planning time 20 mts Physical therapy ordered Patient was discharged home on 07/30/2025 at his request Patient has unsteady gait and physical therapy recommended longterm facility placement and patient is willing to go to SNF Service service consult placed Patient awaiting transportation to the longterm facility Plan discussed with: Patient Date of Service: Aug 03, 2025 Billing Provider: EMILIANO GELLER MD Common Visit Codes: [id number] INP/OBS CARE(HIGH) EMILIANO GELLER MD Aug 03, 2025 12:59
[2025-08-03] MEDS: DOCUSATE SOD 100 MG CAP PO PRN (21:47)
[2025-08-04] VITALS (8 sets, daily range): BP systolic 134–148; BP diastolic 84–101; PULSE 57–95; RESP 17–19; TEMP 97.6–98.3; O2SAT 96–99
--- NOTE | 2025-08-04 13:09 | DVHPN2 ---
Reviewed: Care Plan Changes from previous H/P or p: No Changes Eyes: No Pain, No Vision change, No Conjunctivae inflammation, No Eyelid inflammation, No Other, No Redness ENT: No Ear pain, No Ear discharge, No Nose pain, No Nose discharge, No Nose congestion, No Mouth pain, No Mouth swelling, No Throat pain, No Throat swelling, No Other Cardiovascular: No Chest Pain, No Palpitations, No Orthopnea, No Paroxysmal Noc. Dyspnea, No Edema, No Lt Headedness, No Other Respiratory: No Cough, No Dry, No Shortness of breath, No SOB with excertion, No Wheezing, No Hemoptysis, No Pleuritic Pain, No Sputum, No Other Gastrointestinal: Nausea, Vomiting; No Abdominal Pain, No Diarrhea, No Constipation, No Melena, No Hematochezia, No Other Genitourinary: No Dysuria, No Frequency, No Incontinence, No Hematuria, No Retention, No Other Musculoskeletal: No other, No neck pain, No shoulder pain, No arm pain, No back pain, No hand pain, No leg pain, No foot pain Skin: No Rash, No Lesions, No Jaundice, No Bruising, No Other Objective Vitals Vital Signs Date Time Temp Pulse Resp B/P (MAP) Pulse Ox O2 Delivery O2 Flow Rate FiO2 08/04/25 09:00 98.3 79 19 134/90 (105) 99 98.3 08/04/25 08:00 Room Air* 0 21 Intake/Output Intake and Output 08/04/25 07:00 Intake Total 1440 ml Balance 1440 ml Intake Oral 1440 ml # Voids 3 Medications Current Medications Medications Dose Ordered Sig/Benito Route Start Time Stop Time Status Last Admin Dose Admin Sodium Chloride 10 ml Q8HR IV 07/28/25 14:00 08/04/25 06:12 10 ML Acetaminophen/ Hydrocodone Bitart 1 tab Q4HP PRN PO 07/28/25 11:30 Ondansetron HCl 4 mg Q4HP PRN IV 07/28/25 11:30 07/29/25 22:18 4 MG Docusate Sodium 100 mg BIDPRN PRN PO 07/28/25 11:30 08/03/25 21:47 100 MG Acetaminophen 650 mg Q6HP PRN PO 07/28/25 11:30 07/31/25 06:01 650 MG Meclizine HCl 25 mg Q6HPRN PRN PO 07/28/25 11:30 Amlodipine Besylate 10 mg DAILY PO 07/29/25 10:00 08/04/25 08:45 10 MG Aspirin 81 mg DAILY PO 07/29/25 10:00 08/04/25 08:45 81 MG Atorvastatin Calcium 40 mg HS PO 07/28/25 22:00 08/03/25 21:47 40 MG Lisinopril 10 mg DAILY PO 07/29/25 10:00 08/04/25 08:45 10 MG Metoclopramide HCl 10 mg Q6HR IV 07/28/25 18:00 08/04/25 12:30 10 MG Clopidogrel Bisulfate 75 mg DAILY PO 07/30/25 10:00 08/15/25 23:00 08/04/25 08:46 75 MG Laboratory Results Laboratory Tests 07/29/25 06:55 Labs and/or images reviewed: Labs reviewed by me, Image(s) reviewed by me Assessment/Plan Assessment/Plan Acute ischemic stroke MRI brain shows Few scattered punctate acute infarcts of the left lateral cerebellum consult for Neurology Dr. Lee appreciated placed on aspirin Plavix Dizziness Hypertension: Amlodipine lisinopril Hypercholesterolemia: Lipitor Carotid ultrasound negative Head and neck CT negative Echocardiogram 05/31/2025 normal Time spent 48 minutes Advanced care planning time 20 mts Physical therapy ordered Patient was discharged home on 07/30/2025 at his request Patient has unsteady gait and physical therapy recommended [facility] facility placement and patient is willing to go to SNF Service service consult placed Patient awaiting transportation to the [facility] facility Plan discussed with: Patient Date of Service: Aug 04, 2025 Billing Provider: EMILIANO GELLER MD Common Visit Codes: [id number] INP/OBS CARE(HIGH) EMILIANO GELLER MD Aug 04, 2025 13:09
[2025-08-05] VITALS (8 sets, daily range): BP systolic 135–147; BP diastolic 80–92; PULSE 56–67; RESP 16–18; TEMP 97.8–98.8; O2SAT 96–99
--- NOTE | 2025-08-05 10:51 | DVHPN2 ---
Reviewed: Care Plan Changes from previous H/P or p: No Changes Eyes: No Pain, No Vision change, No Conjunctivae inflammation, No Eyelid inflammation, No Other, No Redness ENT: No Ear pain, No Ear discharge, No Nose pain, No Nose discharge, No Nose congestion, No Mouth pain, No Mouth swelling, No Throat pain, No Throat swelling, No Other Cardiovascular: No Chest Pain, No Palpitations, No Orthopnea, No Paroxysmal Noc. Dyspnea, No Edema, No Lt Headedness, No Other Respiratory: No Cough, No Dry, No Shortness of breath, No SOB with excertion, No Wheezing, No Hemoptysis, No Pleuritic Pain, No Sputum, No Other Gastrointestinal: Nausea, Vomiting; No Abdominal Pain, No Diarrhea, No Constipation, No Melena, No Hematochezia, No Other Genitourinary: No Dysuria, No Frequency, No Incontinence, No Hematuria, No Retention, No Other Musculoskeletal: No other, No neck pain, No shoulder pain, No arm pain, No back pain, No hand pain, No leg pain, No foot pain Skin: No Rash, No Lesions, No Jaundice, No Bruising, No Other Objective Vitals Vital Signs Date Time Temp Pulse Resp B/P (MAP) Pulse Ox O2 Delivery O2 Flow Rate FiO2 08/05/25 08:55 98.7 66 18 142/80 (100) 96 98.7 08/04/25 20:00 Room Air* 0 21 Intake/Output Intake and Output 08/05/25 07:00 Intake Total 2105 ml Output Total 800 ml Balance 1305 ml Intake Oral 2105 ml Output Urine Total 800 ml # Voids 3 Medications Current Medications Medications Dose Ordered Sig/Benito Route Start Time Stop Time Status Last Admin Dose Admin Sodium Chloride 10 ml Q8HR IV 07/28/25 14:00 08/05/25 06:09 10 ML Acetaminophen/ Hydrocodone Bitart 1 tab Q4HP PRN PO 07/28/25 11:30 Ondansetron HCl 4 mg Q4HP PRN IV 07/28/25 11:30 07/29/25 22:18 4 MG Docusate Sodium 100 mg BIDPRN PRN PO 07/28/25 11:30 08/05/25 06:21 100 MG Acetaminophen 650 mg Q6HP PRN PO 07/28/25 11:30 07/31/25 06:01 650 MG Meclizine HCl 25 mg Q6HPRN PRN PO 07/28/25 11:30 Amlodipine Besylate 10 mg DAILY PO 07/29/25 10:00 08/04/25 08:45 10 MG Aspirin 81 mg DAILY PO 07/29/25 10:00 08/04/25 08:45 81 MG Atorvastatin Calcium 40 mg HS PO 07/28/25 22:00 08/04/25 21:51 40 MG Lisinopril 10 mg DAILY PO 07/29/25 10:00 08/04/25 08:45 10 MG Metoclopramide HCl 10 mg Q6HR IV 07/28/25 18:00 08/05/25 06:09 10 MG Clopidogrel Bisulfate 75 mg DAILY PO 07/30/25 10:00 08/15/25 23:00 08/04/25 08:46 75 MG Laboratory Results Laboratory Tests 07/29/25 06:55 Labs and/or images reviewed: Labs reviewed by me, Image(s) reviewed by me Assessment/Plan Assessment/Plan Acute ischemic stroke MRI brain shows Few scattered punctate acute infarcts of the left lateral cerebellum consult for Neurology Dr. Lee appreciated placed on aspirin Plavix Dizziness Hypertension: Amlodipine lisinopril Hypercholesterolemia: Lipitor Carotid ultrasound negative Head and neck CT negative Echocardiogram 05/31/2025 normal Time spent 48 minutes Advanced care planning time 20 mts Physical therapy ordered Patient was discharged home on 07/30/2025 at his request Patient has unsteady gait and physical therapy recommended half-way facility placement and patient is willing to go to SNF Awaiting authorization from the insurance for half-way facility placement Plan discussed with: Patient My Orders Orders - EMILIANO GELLER MD Procedure Category Date Status Time * Wound Consult CONS 08/05/25 Transmitted * Dietary Consult CONS 08/05/25 Transmitted 03:47 Date of Service: Aug 05, 2025 Billing Provider: EMILIANO GELLER MD Common Visit Codes: [id number] INP/OBS CARE(HIGH) EMILIANO GELLER MD Aug 05, 2025 10:51
[2025-08-06] VITALS (8 sets, daily range): BP systolic 140–146; BP diastolic 84–92; PULSE 58–71; RESP 18–20; TEMP 36.8; O2SAT 97–98
--- NOTE | 2025-08-06 10:33 | DVHPN2 ---
Reviewed: Care Plan Changes from previous H/P or p: No Changes Eyes: No Pain, No Vision change, No Conjunctivae inflammation, No Eyelid inflammation, No Other, No Redness ENT: No Ear pain, No Ear discharge, No Nose pain, No Nose discharge, No Nose congestion, No Mouth pain, No Mouth swelling, No Throat pain, No Throat swelling, No Other Cardiovascular: No Chest Pain, No Palpitations, No Orthopnea, No Paroxysmal Noc. Dyspnea, No Edema, No Lt Headedness, No Other Respiratory: No Cough, No Dry, No Shortness of breath, No SOB with excertion, No Wheezing, No Hemoptysis, No Pleuritic Pain, No Sputum, No Other Gastrointestinal: Nausea, Vomiting; No Abdominal Pain, No Diarrhea, No Constipation, No Melena, No Hematochezia, No Other Genitourinary: No Dysuria, No Frequency, No Incontinence, No Hematuria, No Retention, No Other Musculoskeletal: No other, No neck pain, No shoulder pain, No arm pain, No back pain, No hand pain, No leg pain, No foot pain Skin: No Rash, No Lesions, No Jaundice, No Bruising, No Other Objective Vitals Vital Signs Date Time Temp Pulse Resp B/P (MAP) Pulse Ox O2 Delivery O2 Flow Rate FiO2 08/06/25 09:00 97.9 67 18 140/84 (102) 97 97.9 08/05/25 20:00 Room Air* 0 21 Intake/Output Intake and Output 08/06/25 07:00 Intake Total 650 ml Output Total 300 ml Balance 350 ml Intake Oral 650 ml Output Urine Total 300 ml # Voids 3 Medications Current Medications Medications Dose Ordered Sig/Benito Route Start Time Stop Time Status Last Admin Dose Admin Sodium Chloride 10 ml Q8HR IV 07/28/25 14:00 08/06/25 06:04 10 ML Acetaminophen/ Hydrocodone Bitart 1 tab Q4HP PRN PO 07/28/25 11:30 Ondansetron HCl 4 mg Q4HP PRN IV 07/28/25 11:30 07/29/25 22:18 4 MG Docusate Sodium 100 mg BIDPRN PRN PO 07/28/25 11:30 08/05/25 22:46 100 MG Acetaminophen 650 mg Q6HP PRN PO 07/28/25 11:30 07/31/25 06:01 650 MG Meclizine HCl 25 mg Q6HPRN PRN PO 07/28/25 11:30 Amlodipine Besylate 10 mg DAILY PO 07/29/25 10:00 08/05/25 10:49 10 MG Aspirin 81 mg DAILY PO 07/29/25 10:00 08/05/25 10:48 81 MG Atorvastatin Calcium 40 mg HS PO 07/28/25 22:00 08/05/25 22:46 40 MG Lisinopril 10 mg DAILY PO 07/29/25 10:00 08/05/25 10:50 10 MG Metoclopramide HCl 10 mg Q6HR IV 07/28/25 18:00 08/06/25 06:04 10 MG Clopidogrel Bisulfate 75 mg DAILY PO 07/30/25 10:00 08/15/25 23:00 08/05/25 10:51 75 MG Laboratory Results Laboratory Tests 07/29/25 06:55 Labs and/or images reviewed: Labs reviewed by me, Image(s) reviewed by me Assessment/Plan Assessment/Plan Acute ischemic stroke MRI brain shows Few scattered punctate acute infarcts of the left lateral cerebellum consult for Neurology Dr. Lee appreciated placed on aspirin Plavix Dizziness Hypertension: Amlodipine lisinopril Hypercholesterolemia: Lipitor Carotid ultrasound negative Head and neck CT negative Echocardiogram 05/31/2025 normal Time spent 48 minutes Advanced care planning time 20 mts Physical therapy ordered Patient was discharged home on 07/30/2025 at his request Patient has unsteady gait and physical therapy recommended fdc facility placement and patient is willing to go to SNF Patient was accepted at [facility] Awaiting authorization from the insurance for fdc facility placement Plan discussed with: Patient Date of Service: Aug 06, 2025 Billing Provider: EMILIANO GELLER MD Common Visit Codes: [id number] INP/OBS CARE(HIGH) EMILIANO GELLER MD Aug 06, 2025 10:33
[2025-08-06] MEDS: LACTULOSE 20Gm/30ML SOLN PO ONE (10:57)
[2025-08-06] MEDS ORDERED: DOCUSATE SOD 100 MG CAP PO SCH (22:00)
== END 2025-08-06 20:00 | DRG 65 ==
LOC: EDBD 04:50 → ER 04:50 → OVERFLOW 11:20 → WEST WING 13:27 → TELE-WESTW 07-29 13:06
PROVIDERS: ADMIT Family Medicine; ATTEND Family Medicine
PROC: 5A09357 Assistance with Respiratory Ventilation, Less than 24 Consecutive Hours, Continuous Positive Airway Pressure (ICD-10-PCS; principal; 2025-07-29)
PROC: 5A09357 Assistance with Respiratory Ventilation, Less than 24 Consecutive Hours, Continuous Positive Airway Pressure (ICD-10-PCS; 2025-07-30)
DX: I63.9 Cerebral infarction, unspecified (principal); G81.94 Hemiplegia, unspecified affecting left nondominant side; Z79.02 Long term (current) use of antithrombotics/antiplatelets; I10 Essential (primary) hypertension; E66.9 Obesity, unspecified; I25.10 Atherosclerotic heart disease of native coronary artery without angina pectoris; Z20.822 Contact with and (suspected) exposure to COVID-19; E78.00 Pure hypercholesterolemia, unspecified; Z82.3 Family history of stroke; Z82.49 Family history of ischemic heart disease and other diseases of the circulatory system; Z83.3 Family history of diabetes mellitus; Z79.82 Long term (current) use of aspirin; Z79.899 Other long term (current) drug therapy; Z68.32 Body mass index [BMI] 32.0-32.9, adult
CPT/HCPCS: 36415; 70450; 70496; 70498; 70551; 71045; 80048; 80053; 80061; 80307; 82962; 84484; 85025; 87426; 93005; 93886; 94660; 97110; 97116; 97163; 97530; G0378; J2405